=== PATIENT | female | born 1965 | race Caucasian/White ===

== ENCOUNTER → 2016-05-17 16:39 | Outpatient (CLI) | payer MEDICARE ==
[~2016-05-17 16:39] MED LIST: ADVAIR 250/501 DISK INH; BUTALB-APAP-CA1 EACH PO; LAMICTAL200 MG PO; OXYCODONE HCL5 MG PO; PROAIR HFA8.5 GM INH; PROZAC40 MG PO; WELLBUTRIN SR150 MG PO; XANAX1 MG PO
[2016-07-13 06:40] VITALS: BMI 65.5
== END | disposition home or self-care (01) ==
LOC: D.MAMMO 15:45
DX: Z12.31 Encounter for screening mammogram for malignant neoplasm of breast (principal)

== ENCOUNTER → 2016-05-26 09:07 | Outpatient (CLI) | payer MEDICARE ==
[2016-07-13 06:40] VITALS: BMI 65.5
== END | disposition home or self-care (01) ==
LOC: D.US 09:07
DX: R92.8 Other abnormal and inconclusive findings on diagnostic imaging of breast (principal)

== ENCOUNTER 2016-07-13 05:22 | Day surgery (SDC) | payer MEDICARE ==
[2016-07-12 14:01] LABS: HEMATOCRIT 41.7 % (36.0-48.0); HEMOGLOBIN 13.3 g/dL (12-16); MCH 28.1 pg (26.0-34.0); MCHC 31.9 g/dL (31.0-37.0); MCV 88.2 fL (80.0-100.0); MEAN PLATELET VOLUME 9.8 fL (7.4-10.4); RBC 4.73 10x6/uL (4.00-5.40); RDW 14.7 % (11.5-14.5); WBC 8.6 10x3/uL (4.8-10.8)
[~2016-07-13] VITALS: Ht 160 cm; Wt 167.4 kg
[~2016-07-13 05:22] MED LIST changes: -OXYCODONE HCL5 MG PO
[2016-07-13 06:40] VITALS: BP 149/90; Ht 160 cm; Wt 167.4 kg
--- NOTE | 2016-07-13 10:50 | NUR ---
BREAST TISSUE SPECIMEN SENT TO RADIOLOGY AT 1044 VIA SHAYNE JAIMES
--- NOTE | 2016-07-13 10:57 | NUR ---
MISTY IN MAMMOGRAPHY HAS RECEIVED THE SPECIMAN
[2016-07-13] MEDS ORDERED: OXYCODONE HCL5 MG PO (11:06)
--- NOTE | 2016-07-13 13:03 | NUR ---
IV DC WITH CATHER TIP INTACT
--- NOTE | 2016-07-13 19:02 | NUR ---
1340--PT'S RIDE ARRIVES, DISCHARGE INSTRUCTIONS GIVEN AND PT VERBALIZES UNDERSTANDING. PT OFF UNIT VIA ELMIRA. JOSEPHINE GORE
--- NOTE | 2016-07-14 09:11 | OP ---
PATIENT NAME: ADITYA HECTOR MEDICAL RECORD: [id number] :69 LOCATION:D.OPS ADMISSION DATE: SURGEON: PAT GALLEGO MD DATE OF OPERATION: 07/13/2016 SURGEON: Pat Gallego MD PREOPERATIVE DIAGNOSIS: Mammographic mass of the left breast. POSTOPERATIVE DIAGNOSIS: Mammographic mass of the left breast. PROCEDURES PERFORMED: Excisional biopsy of left breast mass with stereotactic needle localization. ANESTHESIA: General. COMPLICATIONS: None. SPECIMENS: Left breast mass, ____. ESTIMATED BLOOD LOSS: 20 cc. Case was clean. OPERATIVE COURSE: After consent was obtained, the patient was taken to the operating room and placed in supine position on the operating table. Next, general anesthesia was given via endotracheal intubation after a timeout was performed to confirm the correct patient and procedure. The left breast was prepped and draped in typical sterile fashion. A 30 cc of local anesthetic were injected into the left breast for local anesthetic. A small elliptical incision was made around the previously placed stereotactic guided needle. The left breast mass was carefully dissected using a combination of electrocautery and Metzenbaum dissection. A core section that was approximately 5 cm in depth, 3 cm in width and 2 cm in length was taken with the wire. Once the specimen was taken, it was sent on the mammographic plate to radiology where the needle and the lesion were again identified on post-biopsy imaging. The wound was copiously irrigated and suctioned. Careful attention was paid to hemostasis, which was obtained with a combination of electrocautery and 3-0 Vicryl suture. The lesion was closed in multiple layers. The deep layer was closed with 3-0 Vicryl sutures, superficial subcutaneous tissue was closed with 3-0 Vicryl sutures. Skin was closed with 4-0 Stratafix, Mastisol and Steri-Strips. At the end of the case, all needle and instrument counts were correct. No complications occurred. The patient was extubated and transferred to the PACU in stable condition. TRANSINT:[id number] Voice Confirmation ID: [id number] DOCUMENT ID: [id number] OPERATIVE REPORT [id number] ADITYA HECTOR PAT GALLEGO MD at 0911 CC: [id number] DICTATION DATE: 07/13/16 1112 RESOURCE TECHNICIAN: 07/13/16 1924 [facility] [place] 07/13/16 [facility] [address] [place] [address]
== END 2016-07-13 13:40 | disposition home or self-care (01) ==
LOC: D.OPS 05:22
PROVIDERS: Anesthesiology
DX: N60.32 Fibrosclerosis of left breast (principal)

== ENCOUNTER 2016-07-17 11:49 | Emergency (ER) | payer MEDICARE ==
[2016-07-13 06:40] VITALS: BMI 65.5
[~2016-07-17 11:49] MED LIST changes: +OXYCODONE HCL5 MG PO
== END 2016-07-17 14:10 | disposition home or self-care (01) ==
LOC: D.ER 11:49
DX: G89.18 Other acute postprocedural pain (principal); N64.4 Mastodynia; F17.200 Nicotine dependence, unspecified, uncomplicated

== ENCOUNTER 2016-10-16 17:11 | Emergency (ER) | payer MEDICARE ==
[2016-07-13 06:40] VITALS: BMI 65.5
[2016-10-16 18:30] LABS: BASOPHILS 0.3 % (0-2); EOSINOPHILS 3.9 % (0-7); HEMATOCRIT 39.3 % (36.0-48.0); HEMOGLOBIN 12.6 g/dL (12-16); IMMATURE GRANULOCYTES 0.3 % (0-5); LYMPHOCYTES 22.4 % (15-50); MCH 28.1 pg (26.0-34.0); MCHC 32.1 g/dL (31.0-37.0); MCV 87.7 fL (80.0-100.0); MONOCYTES 4.8 % (2-11); NEUTROPHILS 68.3 % (40-80); RBC 4.48 10x6/uL (4.00-5.40); RDW 14.9 % (11.5-14.5); WBC 10.2 10x3/uL (4.8-10.8)
[2016-10-16 18:45] LABS: PLATELET COUNT 262 10x3/uL (130-400)
[2016-10-16 18:48] LABS: ALBUMIN 3.2 g/dL (3.4-5.0); ALKALINE PHOSPHATASE 89 U/L (46-116); ALT (SGPT) 13 U/L (10-68); BILIRUBIN - TOTAL 0.35 mg/dL (0.2-1.3); CALC OSMOLALITY 277 mosm/kg (275-300); CALCIUM 8.8 mg/dL (8.5-10.1); CARBON DIOXIDE 29.6 mmol/L (21.0-32.0); CHLORIDE - SERUM 103 mmol/L (98-107); CREATININE - SERUM 0.8 mg/dL (0.6-1.3); GLUCOSE 107 mg/dL (74-106); POTASSIUM - SERUM 3.9 mmol/L (3.5-5.1); PROTEIN - SERUM 7.5 g/dL (6.4-8.2); SODIUM 141 mmol/L (136-145); UREA NITROGEN 5 mg/dL (7-18); eGFR NON AFRICAN AMERICAN 81 mL/min (90-120)
[2016-10-16 18:54] LABS: PRO BNP 19 pg/mL (0-125)
[2016-10-16 19:19] LABS: APPEARANCE HAZY (CLEAR); BILIRUBIN NEGATIVE (NEGATIVE); COLOR YELLOW (YELLOW); GLUCOSE NEGATIVE (NEGATIVE); KETONE NEGATIVE (NEGATIVE); LEUKOCYTE ESTERASE NEGATIVE (NEGATIVE); NITRITE NEGATIVE (NEGATIVE); PROTEIN NEGATIVE (NEGATIVE); UROBILINOGEN NORMAL (NORMAL)
== END 2016-10-16 20:23 | disposition home or self-care (01) ==
LOC: D.ER 17:11
PROVIDERS: Physician Assistant Medical
DX: J44.1 Chronic obstructive pulmonary disease with (acute) exacerbation (principal); J06.9 Acute upper respiratory infection, unspecified; J01.90 Acute sinusitis, unspecified; F17.200 Nicotine dependence, unspecified, uncomplicated

== ENCOUNTER → 2016-10-17 13:17 | Outpatient (CLI) | payer MEDICARE ==
[2016-07-13 06:40] VITALS: BMI 65.5
== END | disposition home or self-care (01) ==
LOC: D.RT 13:17
DX: J45.909 Unspecified asthma, uncomplicated (principal)

== ENCOUNTER → 2016-10-21 07:56 | Outpatient (CLI) | payer MEDICARE ==
[2016-07-13 06:40] VITALS: BMI 65.5
== END | disposition home or self-care (01) ==
LOC: D.RAD 07:56
DX: E66.01 Morbid (severe) obesity due to excess calories (principal)

== ENCOUNTER 2016-11-02 07:55 | Day surgery (SDC) | payer MEDICARE ==
[~2016-11-02] VITALS: Ht 160 cm; Wt 157.7 kg
[2016-11-02] MEDS ORDERED: SINGULAIR10 MG PO (08:46)
[2016-11-02 08:47] VITALS: BP 163/93; Ht 160 cm; Wt 157.7 kg
[2016-11-02 09:02] LABS: BASOPHILS 0.2 % (0-2); EOSINOPHILS 4.1 % (0-7); HEMATOCRIT 40.6 % (36.0-48.0); HEMOGLOBIN 12.8 g/dL (12-16); IMMATURE GRANULOCYTES 0.5 % (0-5); LYMPHOCYTES 26.4 % (15-50); MCHC 31.5 g/dL (31.0-37.0); MCV 88.8 fL (80.0-100.0); MEAN PLATELET VOLUME 10.6 fL (7.4-10.4); MONOCYTES 5.2 % (2-11); NEUTROPHILS 63.6 % (40-80); PLATELET COUNT 297 10x3/uL (130-400); RBC 4.57 10x6/uL (4.00-5.40); RDW 15.3 % (11.5-14.5); WBC 8.1 10x3/uL (4.8-10.8)
[2016-11-02 09:19] LABS: CALC OSMOLALITY 280 mosm/kg (275-300); CALCIUM 8.2 mg/dL (8.5-10.1); CHLORIDE - SERUM 104 mmol/L (98-107); CREATININE - SERUM 0.8 mg/dL (0.6-1.3); GLUCOSE 136 mg/dL (74-106); POTASSIUM - SERUM 3.9 mmol/L (3.5-5.1); SODIUM 141 mmol/L (136-145); UREA NITROGEN 7 mg/dL (7-18); eGFR NON AFRICAN AMERICAN 81 mL/min (90-120)
[2016-11-02 09:29] LABS: CARBON DIOXIDE 27.3 mmol/L (21.0-32.0)
--- NOTE | 2016-11-02 11:37 | NUR ---
1125 DISCHARGE INSTRUCTIONS GIVEN. ESCORTED OUT BY VOLUNTEER.
== END 2016-11-02 11:25 | disposition home or self-care (01) ==
LOC: D.OPS 07:55
PROVIDERS: Anesthesiology
DX: E66.2 Morbid (severe) obesity with alveolar hypoventilation (principal); Z68.44 Body mass index [BMI] 60.0-69.9, adult; G47.33 Obstructive sleep apnea (adult) (pediatric); K20.9 Esophagitis, unspecified; K29.50 Unspecified chronic gastritis without bleeding; K44.9 Diaphragmatic hernia without obstruction or gangrene; Z01.812 Encounter for preprocedural laboratory examination

== ENCOUNTER → 2016-12-06 10:38 | Outpatient (CLI) | payer SELFPAY ==
[~2016-12-06] VITALS: Ht 160 cm; Wt 160.1 kg
[~2016-12-06 10:38] MED LIST changes: +SINGULAIR10 MG PO
[2016-12-06 13:34] VITALS: Ht 160 cm; Wt 160.1 kg
== END | disposition home or self-care (01) ==
LOC: D.FANS 10:30
DX: Z01.818 Encounter for other preprocedural examination (principal)

== ENCOUNTER → 2017-01-20 12:04 | Outpatient (CLI) | payer MEDICARE ==
[2016-12-06 13:34] VITALS: BMI 62.5
[~2017-01-20 12:04] MED LIST changes: +LEVAQUIN750 MG PO
== END | disposition home or self-care (01) ==
LOC: D.RAD 10:00
DX: J45.909 Unspecified asthma, uncomplicated (principal)

== ENCOUNTER → 2017-03-15 15:40 | Outpatient (CLI) | payer MEDICARE ==
[2016-12-06 13:34] VITALS: BMI 62.5
== END | disposition home or self-care (01) ==
LOC: D.LABREF 15:40
DX: J11.1 Influenza due to unidentified influenza virus with other respiratory manifestations (principal)

== ENCOUNTER → 2017-04-19 08:19 | Outpatient (CLI) | payer MEDICARE ==
[2016-12-06 13:34] VITALS: BMI 62.5
[2017-04-19 09:35] LABS: BASOPHILS 0.2 % (0-2); EOSINOPHILS 2.1 % (0-7); HEMATOCRIT 40.3 % (36.0-48.0); IMMATURE GRANULOCYTES 0.3 % (0-5); MCH 29.1 pg (26.0-34.0); MCHC 32.3 g/dL (31.0-37.0); MCV 90.4 fL (80.0-100.0); MEAN PLATELET VOLUME 10.2 fL (7.4-10.4); MONOCYTES 5.4 % (2-11); PLATELET COUNT 252 10x3/uL (130-400); RBC 4.46 10x6/uL (4.00-5.40); RDW 15.2 % (11.5-14.5); WBC 9.2 10x3/uL (4.8-10.8)
== END | disposition home or self-care (01) ==
LOC: D.ECHO 08:19
PROVIDERS: Internal Medicine Pulmonary Disease
DX: J45.909 Unspecified asthma, uncomplicated (principal)

== ENCOUNTER 2017-04-23 12:33 | Inpatient (IN) | payer MEDICARE ==
[~2017-04-23] VITALS: Ht 160 cm; Wt 155.9 kg
--- NOTE | ~2017-04-23 | HP ---
PATIENT: ADITYA NGUYENTH MEDICAL RECORD: [id number] ACCOUNT: [id number] LOCATION:D. D2134 : 69 ADMISSION DATE: 04/23/17 HISTORY AND PHYSICAL EXAMINATION HISTORY OF PRESENT ILLNESS: A 51-year-old female presented to the Emergency Room with progressive shortness of breath over the past 2 days. PAST MEDICAL HISTORY: Significant for COPD; anxiety disorder; bilateral knee replacement; sleep apnea, is on CPAP at home; recurrent pneumonia. CURRENT MEDICATIONS: Listed as lisinopril, Lamictal, bupropion, Prozac, Singulair, Xanax, Duracet, Advair, Flonase, ProAir, DuoNebs. Her circulation clerk is Dr. Daly. She reports fever the past 2 days with her progressive shortness of breath. No relief with updraft treatments at home. REVIEW OF SYSTEMS: GENERAL: No reported change in weight or appetite. HEENT: No cephalgia, visual changes, tinnitus, epistaxis or dysphagia. CARDIOVASCULAR: Denies chest pain, denies palpitations. Had a recent echocardiogram that was normal with ejection fraction of 55%. This was done within the last 2 weeks. PULMONARY: Denies hemoptysis, denies night sweats. History of COPD, obstructive sleep apnea, acute exacerbation with her shortness of breath and cough. GASTROINTESTINAL: Denies hematemesis, hematochezia or melena. GENITOURINARY: Denies dysuria. MUSCULOSKELETAL: No acute changes. ENDOCRINE: Denies polyuria, polydipsia, or polyphagia. PHYSICAL EXAMINATION: VITAL SIGNS: Temperature 97.2, blood pressures 155/55, heart rate 64, respirations 20, O2 sats 94% with supplemental oxygen, morbidly obese. HEENT: Normocephalic, atraumatic. Eyes; pupils are equally round and reactive to light and accommodation. Extraocular muscles intact. Conjunctivae not injected. Ears; canals patent. TMs are intact. Nose; nares patent without drainage. Throat; no erythema, no exudates. NECK: Supple. No lymphadenopathy. HEART: Regular rate and rhythm. No S3, S4, no rub. LUNGS: Very poor air movement, scattered rhonchi. ABDOMEN: Soft, nontender. Bowel sounds in all 4 quadrants. EXTREMITIES: Present times 4, no edema. NEUROLOGIC: Intact. SKIN: Warm and dry. No rash. LABORATORY DATA: ABG showed a pH of 7.423, pCO2 39, pO2 74, FiO2 28. CBC; white count 9.2, hemoglobin 13.3, hematocrit 40.5, platelets 243. BUN 8, creatinine 0.7, glucose 134, calcium 9.0. AST 14, ALT 16, alkaline phosphatase 77. Troponin is less than 0.017. ProBNP 17, normal. Chest x-ray, possible early pneumonia. ASSESSMENT AND PLAN: HISTORY AND PHYSICAL [id number] ADITYA NGUYEN 1. Exacerbation of chronic obstructive pulmonary disease, obstructive sleep apnea. Pulmonology consulted and will be on BiPAP tonight. 2. Anxiety. Resume Xanax. 3. Morbid obesity. Risk factors for thromboembolic event. We will check a D-dimer, if elevated we will obtain CTA chest. Empiric antibiotics. Blood cultures pending. TRANSINT:[id number] Voice Confirmation ID: [id number] DOCUMENT ID: [id number] KENNEY PATEL DO at 0823 CC: [id number] DICTATION DATE: 04/23/171940 CHANGE ADVISOR: 04/24/[address] [facility] [address] [place] [address]
--- NOTE | ~2017-04-23 | EC ---
PATIENT:ADITYA NGUYENTH DATE OF SERVICE: 04/23/17 SEX: F MEDICAL RECORD: [id number] DATE OF : 69 LOCATION:D.M2 D.213 AGE OF PATIENT: 51 ADMISSION DATE: 04/23/17 REFERRING PHYSICIAN: INTERPRETING PHYSICIAN: CHANDA ODOM MD ECHOCARDIOGRAM REPORT ECHO CHARGES 5 ECHO LIMITED CLINICAL DIAGNOSIS: CHF/EDEMA ECHOCARDIOGRAPHIC MEASUREMENTS (adult normal given) AC root (d.<3.7cm) 0 cm LV Septum d (<1.2 cm> 0 cm Valve Excursion 0 cm LV Septum (systole) 0 cm Left Atria (s.<4.0cm> 0 cm LVPW d(<1.2cm) 0 cm RV (d.<2.3cm) 0 cm LVPW (sytole) 0 cm LV diastole(<5.6CM) 0 cm MV E-F(>70mm/sec) 0 cm LV systole 0 cm LVOT Diameter 0 cm MV exc.(>10mm) 0 cm Est.ejection fraction (50-75%) % Pericardial Effusion N DOPPLER: LVIT 0 cm/sec A 0 cm/sec E 0 cm/sec LA 0 cm/sec RVSP 0 mmHg LVOT 0 cm/sec AOP1/2T 0 m/s Asc. Ao 0 cm/sec RVOT 0 cm/sec RA 0 cm/sec PA 0 cm/sec AV Gradient Peak 0 mmHg AV Mean 0 mmHg AV Area 0 cm MV Gradient Peak 0 mmHg MV Mean 0 mmHg MV Area 0 cm COMMENTS: LIMITED STUDY (2-D ONLY) COMPLETE ECHO DONE ON 04/19/17 Provider Education Specialist: Taya PRESLEY Technical Services Representative: 3 Dr. Oliveira TAPE# PACS DATE OF SERVICE: 04/24/2017 PROCEDURE: Limited echo for ejection fraction. FINDINGS: Left ventricular chamber size is within normal limits. Left ventricular systolic function is normal at 60%. TRANSINT:[id number] Voice Confirmation ID: [id number] DOCUMENT ID: [id number] ECHOCARDIOGRAM REPORT [id number] NGUYEN,TOSCHANDA SILVA MD at 1323 CC: [id number] DICTATION DATE: 04/26/17 1018 DRILL PRESS SET UP OPERATOR: 04/26/17 1153 DIS IN 04/27/17 [facility] [address] [place] [address]
[~2017-04-23 12:33] MED LIST changes: -LEVAQUIN750 MG PO
[2017-04-23 13:04] LABS: BASOPHILS 0.2 % (0-2); HEMATOCRIT 40.5 % (36.0-48.0); HEMOGLOBIN 13.3 g/dL (12-16); IMMATURE GRANULOCYTES 0.2 % (0-5); LYMPHOCYTES 13.3 % (15-50); MCHC 32.8 g/dL (31.0-37.0); MCV 88.4 fL (80.0-100.0); MONOCYTES 6.3 % (2-11); PLATELET COUNT 243 10x3/uL (130-400); RBC 4.58 10x6/uL (4.00-5.40); WBC 9.2 10x3/uL (4.8-10.8)
[2017-04-23 13:19] LABS: ALBUMIN 3.6 g/dL (3.4-5.0); ALKALINE PHOSPHATASE 77 U/L (46-116); ALT (SGPT) 16 U/L (10-68); BILIRUBIN - TOTAL 0.53 mg/dL (0.2-1.3); CALC OSMOLALITY 271 mosm/kg (275-300); CARBON DIOXIDE 28.9 mmol/L (21.0-32.0); CHLORIDE - SERUM 98 mmol/L (98-107); CREATININE - SERUM 0.7 mg/dL (0.6-1.3); GLUCOSE 134 mg/dL (74-106); POTASSIUM - SERUM 4.2 mmol/L (3.5-5.1); PROTEIN - SERUM 7.6 g/dL (6.4-8.2); SODIUM 136 mmol/L (136-145); UREA NITROGEN 8 mg/dL (7-18); eGFR NON AFRICAN AMERICAN > 90 mL/min (90-120)
[2017-04-23 13:27] LABS: PRO BNP 17 pg/mL (0-125); TROPONIN-I < 0.017 ng/mL (0.000-0.060)
[2017-04-23 16:35] VITALS: BP 138/85
[2017-04-23 19:18] VITALS: BP 155/55; BMI 63.9
[2017-04-23 20:00] VITALS: BP 140/81
[2017-04-24] VITALS: BP 144/81
[2017-04-24 04:00] VITALS: BP 120/60
[2017-04-24 05:08] LABS: BASOPHILS 0.2 % (0-2); EOSINOPHILS 0 % (0-7); HEMATOCRIT 41.2 % (36.0-48.0); HEMOGLOBIN 13.5 g/dL (12-16); IMMATURE GRANULOCYTES 0.4 % (0-5); LYMPHOCYTES 11.9 % (15-50); MCHC 32.8 g/dL (31.0-37.0); MCV 88.4 fL (80.0-100.0); MEAN PLATELET VOLUME 10.1 fL (7.4-10.4); NEUTROPHILS 81.5 % (40-80); PLATELET COUNT 276 10x3/uL (130-400); RBC 4.66 10x6/uL (4.00-5.40)
[2017-04-24 05:15] LABS: WBC 12.6 10x3/uL (4.8-10.8)
[2017-04-24 05:38] LABS: ANION GAP 13.1 mmol/L (8-16); CALCIUM 8.9 mg/dL (8.5-10.1); CARBON DIOXIDE 30.7 mmol/L (21.0-32.0); PHOSPHOROUS 4.4 mg/dL (2.5-4.9); POTASSIUM - SERUM 3.8 mmol/L (3.5-5.1)
[2017-04-24 05:40] LABS: CREATININE - SERUM 0.9 mg/dL (0.6-1.3)
[2017-04-24 08:04] VITALS: BP 142/76
[2017-04-24 12:09] VITALS: BP 162/86
[2017-04-24 12:46] VITALS: Ht 160 cm; Wt 155.9 kg
[2017-04-24 16:28] VITALS: BP 157/80
[2017-04-24 20:00] VITALS: BP 151/83
[2017-04-25 04:00] VITALS: BP 142/88
[2017-04-25 04:48] LABS: BASOPHILS 0.1 % (0-2); EOSINOPHILS 0 % (0-7); HEMATOCRIT 39.8 % (36.0-48.0); HEMOGLOBIN 12.7 g/dL (12-16); IMMATURE GRANULOCYTES 0.6 % (0-5); LYMPHOCYTES 11.2 % (15-50); MCH 28.4 pg (26.0-34.0); MCHC 31.9 g/dL (31.0-37.0); MEAN PLATELET VOLUME 10.5 fL (7.4-10.4); MONOCYTES 3.8 % (2-11); NEUTROPHILS 84.3 % (40-80); PLATELET COUNT 292 10x3/uL (130-400); RBC 4.47 10x6/uL (4.00-5.40); RDW 14.8 % (11.5-14.5)
[2017-04-25 04:50] LABS: WBC 17.6 10x3/uL (4.8-10.8)
[2017-04-25 05:51] LABS: ANION GAP 14.7 mmol/L (8-16); CALCIUM 8.9 mg/dL (8.5-10.1); CARBON DIOXIDE 30.3 mmol/L (21.0-32.0); CREATININE - SERUM 0.9 mg/dL (0.6-1.3)
[2017-04-25 08:14] VITALS: BP 136/79
[2017-04-25 12:42] VITALS: BP 178/87
[2017-04-25 16:37] VITALS: BP 147/70
[2017-04-25 20:00] VITALS: BP 136/77
[2017-04-26] VITALS: BP 141/79
[2017-04-26 04:00] VITALS: BP 136/73
[2017-04-26 04:18] LABS: HEMATOCRIT 40.9 % (36.0-48.0); MCH 28.6 pg (26.0-34.0); MCHC 31.8 g/dL (31.0-37.0); MCV 90.1 fL (80.0-100.0); MEAN PLATELET VOLUME 10.4 fL (7.4-10.4); PLATELET COUNT 323 10x3/uL (130-400); RBC 4.54 10x6/uL (4.00-5.40); RDW 14.6 % (11.5-14.5); WBC 21.2 10x3/uL (4.8-10.8)
[2017-04-26 04:26] LABS: CALC OSMOLALITY 285 mosm/kg (275-300); CALCIUM 8.9 mg/dL (8.5-10.1); CARBON DIOXIDE 31.8 mmol/L (21.0-32.0); CHLORIDE - SERUM 99 mmol/L (98-107); CREATININE - SERUM 0.8 mg/dL (0.6-1.3); GLUCOSE 168 mg/dL (74-106); POTASSIUM - SERUM 3.5 mmol/L (3.5-5.1); SODIUM 140 mmol/L (136-145); UREA NITROGEN 22 mg/dL (7-18); eGFR NON AFRICAN AMERICAN 81 mL/min (90-120)
[2017-04-26 04:56] LABS: EOSINOPHILS 1 % (0-7); LYMPHOCYTES 22 % (15-50); MONOCYTES 4 % (2-11); NEUTROPHILS 71 % (40-80); PLATELET ESTIMATE NORMAL
[2017-04-26 08:54] VITALS: BP 104/58
[2017-04-26 12:28] VITALS: BP 130/77
[2017-04-26 16:31] VITALS: BP 142/69
[2017-04-26 21:00] VITALS: BP 145/87
[2017-04-27 06:04] VITALS: BP 144/60
[2017-04-27 06:23] LABS: HEMATOCRIT 37.9 % (36.0-48.0); HEMOGLOBIN 12.4 g/dL (12-16); LYMPHOCYTES 21.3 % (15-50); MCH 28.4 pg (26.0-34.0); MCHC 32.7 g/dL (31.0-37.0); MEAN PLATELET VOLUME 10.1 fL (7.4-10.4); PLATELET COUNT 298 10x3/uL (130-400); RBC 4.37 10x6/uL (4.00-5.40); RDW 14.2 % (11.5-14.5); WBC 18.4 10x3/uL (4.8-10.8)
[2017-04-27 06:42] LABS: MCV 86.7 fL (80.0-100.0)
[2017-04-27 06:43] LABS: ALBUMIN 3.2 g/dL (3.4-5.0); ALKALINE PHOSPHATASE 74 U/L (46-116); ALT (SGPT) 17 U/L (10-68); CALC OSMOLALITY 293 mosm/kg (275-300); CALCIUM 8.9 mg/dL (8.5-10.1); CARBON DIOXIDE 31.1 mmol/L (21.0-32.0); CHLORIDE - SERUM 102 mmol/L (98-107); CREATININE - SERUM 0.6 mg/dL (0.6-1.3); PROTEIN - SERUM 6.9 g/dL (6.4-8.2); SODIUM 142 mmol/L (136-145); UREA NITROGEN 20 mg/dL (7-18); eGFR NON AFRICAN AMERICAN > 90 mL/min (90-120)
[2017-04-27 06:44] LABS: GLUCOSE 235 mg/dL (74-106)
[2017-04-27 08:37] VITALS: BP 155/75
[2017-04-27] MEDS ORDERED: LEVAQUIN750 MG PO (10:06)
[2017-04-27 12:43] VITALS: BP 146/88
== END 2017-04-27 13:25 | disposition home or self-care (01) | DRG 177 ==
LOC: D.ER 12:33 → D.M2 14:23
PROVIDERS: Emergency Medicine; Family Medicine
PROC: 5A09457 Assistance with Respiratory Ventilation, 24-96 Consecutive Hours, Continuous Positive Airway Pressure (ICD-10-PCS; principal; 2017-04-24)
DX: J15.6 Pneumonia due to other Gram-negative bacteria (principal); I50.33 Acute on chronic diastolic (congestive) heart failure; J96.21 Acute and chronic respiratory failure with hypoxia; J44.0 Chronic obstructive pulmonary disease with (acute) lower respiratory infection; J44.1 Chronic obstructive pulmonary disease with (acute) exacerbation; Z68.44 Body mass index [BMI] 60.0-69.9, adult; M35.1 Other overlap syndromes; J13 Pneumonia due to Streptococcus pneumoniae; G47.33 Obstructive sleep apnea (adult) (pediatric); E66.01 Morbid (severe) obesity due to excess calories; J01.90 Acute sinusitis, unspecified; J30.9 Allergic rhinitis, unspecified; K44.9 Diaphragmatic hernia without obstruction or gangrene; Z72.0 Tobacco use; K08.89 Other specified disorders of teeth and supporting structures

== ENCOUNTER → 2017-11-24 13:47 | Outpatient (CLI) | payer MEDICARE ==
[2017-04-24 12:46] VITALS: BMI 58.9
[~2017-11-24 13:47] MED LIST changes: +LEVAQUIN750 MG PO
== END | disposition home or self-care (01) ==
LOC: D.CT 11-22 11:30
DX: R91.1 Solitary pulmonary nodule (principal)

== ENCOUNTER 2018-02-04 12:58 | Emergency (ER) | payer MEDICARE ==
[~2018-02-04] VITALS: Ht 160 cm; Wt 153.2 kg
[2018-02-04 13:08] VITALS: Ht 160 cm; Wt 153.2 kg
[2018-02-04] MEDS ORDERED: K-TAB10 MEQ PO (13:12)
[2018-02-04] MEDS ORDERED: FUROSEMIDE20 MG PO (13:12)
[2018-02-04] MEDS ORDERED: PRINIVIL20 MG PO (13:12)
[2018-02-04] MEDS ORDERED: TYLENOL W/CODEI1 TAB PO (14:56)
[2018-02-04] MEDS ORDERED: CYCLOBENZAPRINE10 MG PO (14:56)
[2018-02-04 15:53] VITALS: BP 128/74
== END 2018-02-04 15:55 | disposition home or self-care (01) ==
LOC: D.ER 12:58
DX: R07.81 Pleurodynia (principal); R09.1 Pleurisy; I10 Essential (primary) hypertension; J44.9 Chronic obstructive pulmonary disease, unspecified; J45.909 Unspecified asthma, uncomplicated; F17.200 Nicotine dependence, unspecified, uncomplicated

== ENCOUNTER 2018-02-14 17:59 | Emergency (ER) | payer MEDICARE ==
[~2018-02-14] VITALS: Ht 160 cm; Wt 148.6 kg
[~2018-02-14 17:59] MED LIST changes: +CYCLOBENZAPRINE10 MG PO; +FUROSEMIDE20 MG PO; +K-TAB10 MEQ PO; +PRINIVIL20 MG PO; +TYLENOL W/CODEI1 TAB PO
[2018-02-14 18:08] VITALS: Ht 160 cm; Wt 148.6 kg
[2018-02-14 19:46] VITALS: BP 140/71
== END 2018-02-14 19:48 | disposition home or self-care (01) ==
LOC: D.ER 17:59
DX: S93.402A Sprain of unspecified ligament of left ankle, initial encounter (principal); W18.30XA Fall on same level, unspecified, initial encounter; Y93.89 Activity, other specified; Y92.019 Unspecified place in single-family (private) house as the place of occurrence of the external cause; S63.501A Unspecified sprain of right wrist, initial encounter; I10 Essential (primary) hypertension; J44.9 Chronic obstructive pulmonary disease, unspecified; F17.200 Nicotine dependence, unspecified, uncomplicated

== ENCOUNTER 2018-03-12 10:52 | Emergency (ER) | payer MEDICARE ==
[~2018-03-12] VITALS: Ht 160 cm; Wt 156.4 kg
[2018-03-12 11:06] VITALS: BP 173/104; Ht 160 cm; Wt 156.4 kg
== END 2018-03-12 14:33 | disposition left against medical advice (07) ==
LOC: D.ER 10:52
DX: K08.89 Other specified disorders of teeth and supporting structures (principal); I10 Essential (primary) hypertension; J44.9 Chronic obstructive pulmonary disease, unspecified

== ENCOUNTER → 2018-04-25 16:58 | Outpatient (CLI) | payer MEDICARE ==
[2018-03-12 11:06] VITALS: BMI 61.0
== END | disposition home or self-care (01) ==
LOC: D.CT 16:58
DX: R91.1 Solitary pulmonary nodule (principal)

== ENCOUNTER → 2018-09-03 10:41 | Outpatient (CLI) | payer MEDICARE ==
[2018-03-12 11:06] VITALS: BMI 61.0
== END | disposition home or self-care (01) ==
LOC: D.RT 10:41
PROVIDERS: ATTEND Nurse Practitioner Acute Care
DX: J45.909 Unspecified asthma, uncomplicated (principal)

== ENCOUNTER 2018-10-10 17:26 | Emergency (ER) | payer MEDICARE ==
[~2018-10-10] VITALS: Ht 160 cm; Wt 145.5 kg
[2018-10-10 17:30] VITALS: Ht 160 cm; Wt 145.5 kg
[2018-10-10 20:30] VITALS: BP 149/81
[2018-10-11] MEDS ORDERED: COZAAR100 MG PO (10:37)
[2018-10-11] MEDS ORDERED: HYDROCODON-ACE1 EAC2 PO (11:29)
== END 2018-10-10 20:30 | disposition home or self-care (01) ==
LOC: D.ER 17:26
DX: S39.82XA Other specified injuries of lower back, initial encounter (principal); W19.XXXA Unspecified fall, initial encounter; I10 Essential (primary) hypertension; J44.9 Chronic obstructive pulmonary disease, unspecified

== ENCOUNTER 2018-10-11 10:31 | Emergency (ER) | payer MEDICARE ==
[~2018-10-11] VITALS: Ht 160 cm; Wt 145.5 kg
[2018-10-11 10:36] VITALS: Ht 160 cm; Wt 145.5 kg
[2018-10-11] MEDS ORDERED: COZAAR100 MG PO (10:37)
[2018-10-11] MEDS ORDERED: HYDROCODON-ACE1 EAC2 PO (11:29)
[2018-10-11 11:41] VITALS: BP 132/76
== END 2018-10-11 11:42 | disposition home or self-care (01) ==
LOC: D.ER 10:31
DX: M54.5 Low back pain (principal); Z91.81 History of falling

== ENCOUNTER 2019-11-11 14:37 | Inpatient (IN) | payer MEDICARE ==
[~2019-11-11] VITALS: Ht 160 cm; Wt 157.3 kg
[~2019-11-11 14:37] MED LIST changes: +COZAAR100 MG PO; -FUROSEMIDE20 MG PO; +FUROSEMIDE40 MG PO; +HYDROCODON-ACE1 EAC2 PO
[2019-11-11 15:22] LABS: BASOPHILS 0.2 % (0-2); EOSINOPHILS 0.1 % (0-7); HEMATOCRIT 45.2 % (36.0-48.0); IMMATURE GRANULOCYTES 0.4 % (0-5); LYMPHOCYTES 6.4 % (15-50); MCH 27.9 pg (26.0-34.0); MCHC 33.2 g/dL (31.0-37.0); MEAN PLATELET VOLUME 10.3 fL (7.4-10.4); MONOCYTES 3.1 % (2-11); NEUTROPHILS 89.8 % (40-80); RBC 5.38 10x6/uL (4.00-5.40); RDW 14.2 % (11.5-14.5); WBC 19.9 10x3/uL (4.8-10.8)
[2019-11-11 15:28] LABS: CALC OSMOLALITY 283 mosm/kg (275-300); CALCIUM 9.5 mg/dL (8.5-10.1); CARBON DIOXIDE 28.5 mmol/L (21.0-32.0); CHLORIDE - SERUM 100 mmol/L (98-107); CREATININE - SERUM 0.8 mg/dL (0.6-1.3); POTASSIUM - SERUM 3.4 mmol/L (3.5-5.1); SODIUM 139 mmol/L (136-145); UREA NITROGEN 15 mg/dL (7-18); eGFR NON AFRICAN AMERICAN 80 mL/min (90-120)
[2019-11-11 15:30] VITALS: BP 172/92
[2019-11-11 15:35] LABS: GLUCOSE 185 mg/dL (74-106); PLATELET COUNT 367 10x3/uL (130-400)
--- NOTE | 2019-11-11 15:39 | NUR ---
DIGITAL ART DIRECTOR CALLED FOR PSYCH EVAL
[2019-11-11 15:52] LABS: ALBUMIN 3.7 g/dL (3.4-5.0); ALKALINE PHOSPHATASE 84 U/L (30-120); ALT (SGPT) 20 U/L (10-68); AMYLASE - SERUM 30 U/L (25-115); LIPASE 60 U/L (73-393); PROTEIN - SERUM 7.5 g/dL (6.4-8.2)
[2019-11-11 15:54] LABS: TROPONIN-I 0.291 ng/mL (0.000-0.060)
--- NOTE | 2019-11-11 16:32 | NUR ---
PT GONE TO CTG
[2019-11-11 18:07] VITALS: BP 174/111
--- NOTE | 2019-11-11 18:14 | NUR ---
URINE TO LAB
[2019-11-11 18:20] VITALS: BP 182/118
--- NOTE | 2019-11-11 18:21 | NUR ---
PT TAKES HOME OXYGEN 2 L DURING DAY AND 4 L NIGHT TIME.
[2019-11-11 18:22] LABS: BILIRUBIN NEGATIVE (NEGATIVE); GLUCOSE NEGATIVE (NEGATIVE); KETONE MODERATE mg/dL (NEGATIVE); NITRITE NEGATIVE (NEGATIVE); UROBILINOGEN NORMAL (NORMAL)
--- NOTE | 2019-11-11 18:28 | NUR ---
16FR N/G TUBE PLACED LEFT NARE, VERIFIED WITH 20CC AIRBOLAS. TUBE TO LIWS PER DR. JONES
[2019-11-11 18:55] VITALS: BP 170/114
--- NOTE | 2019-11-11 19:30 | NUR ---
RECIEVED TO ROOM ALERT AND ORIENTIATED , NG TUBE TO L NARE CONNECTED TO LOW INTERMITENT SUCTION, C/O ABD PAIN AND TENDERNESS, MORPHINE ACTIVITIES SPECIALIST STARTED ORDERED, REMINED TO BE NPO, SEE ASSESSMENT, BP ELEVATED WILL RECHECK
[2019-11-11 20:00] VITALS: BP 180/120
--- NOTE | 2019-11-11 21:15 | NUR ---
BP RECHECKED REMAINS ELEVATED AT 168/104, APRESSOLINE 10MG IV GIVEN ORDERED, REPORTS PAIN RELIEVED WITH LIBRARY CIRCULATION TECHNICIAN,
[2019-11-11 21:45] LABS: CKMB 8.1 U/L (0.0-3.6); CREATINE KINASE 98 UL (21-215)
[2019-11-11 21:52] LABS: TROPONIN-I 0.734 ng/mL (0.000-0.060)
[2019-11-12] VITALS (35 sets, daily range): BP systolic 86–177; BP diastolic 55–104; Ht 160 cm; Wt 157.3 kg
[2019-11-12 03:13] LABS: BASOPHILS 0 % (0-2); EOSINOPHILS 0 % (0-7); HEMATOCRIT 52.1 % (36.0-48.0); HEMOGLOBIN 17.1 g/dL (12-16); IMMATURE GRANULOCYTES 0.5 % (0-5); LYMPHOCYTES 4.3 % (15-50); MCHC 32.8 g/dL (31.0-37.0); MCV 85.4 fL (80.0-100.0); MEAN PLATELET VOLUME 10.2 fL (7.4-10.4); MONOCYTES 3.5 % (2-11); NEUTROPHILS 91.7 % (40-80); PLATELET COUNT 447 10x3/uL (130-400); RDW 14.5 % (11.5-14.5); WBC 28.1 10x3/uL (4.8-10.8)
[2019-11-12 03:18] LABS: APTT 27.9 SECONDS (22.8-39.4); PROTIME 13.1 SECONDS (11.6-15.0)
[2019-11-12 03:37] LABS: CKMB 10.3 U/L (0.0-3.6); CREATINE KINASE 102 UL (21-215)
[2019-11-12 03:38] LABS: TROPONIN-I 0.922 ng/mL (0.000-0.060)
[2019-11-12 04:12] LABS: ALBUMIN 3.4 g/dL (3.4-5.0); ANION GAP 17.9 mmol/L (8-16); BILIRUBIN - TOTAL 0.79 mg/dL (0.2-1.3); CALCIUM 8.8 mg/dL (8.5-10.1); CARBON DIOXIDE 27.3 mmol/L (21.0-32.0); CHOL - HDL RATIO 5.1 ratio (2.3-4.1); LDL-HDL RATIO 3.6 ratio (1.5-3.5); MAGNESIUM - SERUM 1.8 mg/dL (1.8-2.4); PHOSPHOROUS 5.2 mg/dL (2.5-4.9); POTASSIUM - SERUM 3.2 mmol/L (3.5-5.1); PROTEIN - SERUM 7.4 g/dL (6.4-8.2); THYROID STIMULATING HORMONE 0.83 uIU/mL (0.36-3.74)
[2019-11-12 04:18] LABS: CREATININE - SERUM 1.1 mg/dL (0.6-1.3)
--- NOTE | 2019-11-12 07:54 | NUR ---
ALERT AND ORIENTED. LUNGS CLEAR BILATERALLY. HEART SOUNDS S1 AND S2 HEARD IN ALL SANCHEZ. NG TUBE TO RIGHT NARE PATENT. IV TO RIGHT AC PATENT WITHOUT REDNESS. O2 IN PLACE AT 4L NC. DENIES NEEDS. BED LOW. CALL RAM AND PERSONAL ITEMS IN REACH. WILL CONTINUE TO MONITOR.
--- NOTE | 2019-11-12 10:09 | NUR ---
PATIENT STATES IS NOT DIABETIC AND DOES NOT WANT BLOOD SUGAR CHECKS.
[2019-11-12 10:24] LABS: CKMB 7.1 U/L (0.0-3.6); CREATINE KINASE 94 UL (21-215)
[2019-11-12 10:27] LABS: TROPONIN-I 1.286 ng/mL (0.000-0.060)
--- NOTE | 2019-11-12 14:31 | NUR ---
PATIENT BELONGINGS BAGGED TO GO TO ICU. INCLUDED IN BELONGINGS IS CELL PHONE, NINE SILVER COLORED RINGS, ONE GOLD COLORED RING, ONE HOOP EARRING, THREE BAR EARRINGS, ONE PAIR FLIP FLOPS, ONE MAST PAIR SWEAT PANTS, ONE PINK COTTON PAULINA, ONE PERSONAL BAG. ALL JEWELRY PLACED IN DENTURE CUP AND PLACED IN PATIENT PERSONAL BAG. ALL BELONGINGS PLACED IN PLASTIC BAG FOR TRANSFER TO ICU.
--- NOTE | 2019-11-12 15:06 | NUR ---
REPORT GIVEN TO KEVON IN ICU. BELONGINGS SENT TO ICU WITH MONIQUE GORE.
--- NOTE | 2019-11-12 16:00 | NUR ---
RECIEVED PT FROM OR. ON VENT, PT ON LEVAPED AT 20MCG/MIN. NS AT 75CC/HR. B/P 154/90.
--- NOTE | 2019-11-12 17:00 | NUR ---
LEVAPHED ON AT 10 MCG. B/P 89/50. CHEMISTRY DRAWN AND CR 2.1. PT NOT MAKING MUCH URINE. DR CHERY HERE. NS BOLUS ORDERED.
[2019-11-12 17:01] LABS: ANION GAP 17.7 mmol/L (8-16); CARBON DIOXIDE 22.5 mmol/L (21.0-32.0); CREATININE - SERUM 2.1 mg/dL (0.6-1.3); POTASSIUM - SERUM 3.2 mmol/L (3.5-5.1)
[2019-11-12 17:02] LABS: BASOPHILS 0.1 % (0-2); EOSINOPHILS 0 % (0-7); HEMATOCRIT 49.5 % (36.0-48.0); HEMOGLOBIN 15.8 g/dL (12-16); IMMATURE GRANULOCYTES 0.5 % (0-5); LYMPHOCYTES 7.4 % (15-50); MCH 27.7 pg (26.0-34.0); MCHC 31.9 g/dL (31.0-37.0); MCV 86.8 fL (80.0-100.0); MEAN PLATELET VOLUME 10.9 fL (7.4-10.4); MONOCYTES 3.8 % (2-11); NEUTROPHILS 88.2 % (40-80); PLATELET COUNT 387 10x3/uL (130-400); WBC 20.5 10x3/uL (4.8-10.8)
--- NOTE | 2019-11-12 17:45 | NUR ---
DR ELLIOTT OUT OF OR. UPDATE GIVEN. LR ORDER 1 LITER BOLUS.
[2019-11-13] VITALS (94 sets, daily range): BP systolic 76–123; BP diastolic 34–92
[2019-11-13 06:23] LABS: ANION GAP 13.7 mmol/L (8-16); CALCIUM 7.3 mg/dL (8.5-10.1); CARBON DIOXIDE 23.7 mmol/L (21.0-32.0); MAGNESIUM - SERUM 1.6 mg/dL (1.8-2.4); POTASSIUM - SERUM 3.4 mmol/L (3.5-5.1)
--- NOTE | 2019-11-13 07:00 | NUR ---
ASSESSMENT COMPLETE PER FLOWSHEET.
[2019-11-13 07:18] LABS: BASOPHILS 0.1 % (0-2); EOSINOPHILS 0 % (0-7); HEMATOCRIT 43.3 % (36.0-48.0); HEMOGLOBIN 13.8 g/dL (12-16); IMMATURE GRANULOCYTES 0.5 % (0-5); LYMPHOCYTES 11.7 % (15-50); MCH 27.9 pg (26.0-34.0); MCHC 31.9 g/dL (31.0-37.0); MCV 87.5 fL (80.0-100.0); MEAN PLATELET VOLUME 10.9 fL (7.4-10.4); NEUTROPHILS 81.7 % (40-80); PLATELET COUNT 322 10x3/uL (130-400); RBC 4.95 10x6/uL (4.00-5.40); RDW 15.4 % (11.5-14.5); WBC 15.4 10x3/uL (4.8-10.8)
[2019-11-13 07:19] LABS: CREATININE - SERUM 1.4 mg/dL (0.6-1.3); PHOSPHOROUS 3.4 mg/dL (2.5-4.9)
--- NOTE | 2019-11-13 08:01 | OP ---
PATIENT NAME: ADITYA NGUYENZABETH MEDICAL RECORD: [id number] :69 LOCATION:[facility] D.2304 ADMISSION DATE:11/11/19 SURGEON: PAT ELLIOTT MD DATE OF OPERATION: 11/12/2019 SURGEON: Pat Elliott MD PREOPERATIVE DIAGNOSES: 1. Strangulated incarcerated recurrent incisional hernia. 2. Necrotic small bowel, sepsis, acute kidney injury, morbid obesity. POSTOPERATIVE DIAGNOSES: 1. Strangulated incarcerated recurrent incisional hernia. 2. Necrotic small bowel, sepsis, acute kidney injury, morbid obesity. PROCEDURE PERFORMED: Strangulated incarcerated recurrent incisional hernia repair, small bowel resection, left subclavian central venous line. ANESTHESIA: General. COMPLICATIONS: None. SPECIMENS: Small bowel. Case was grossly contaminated. OPERATIVE COURSE: After consent was obtained, the patient was taken to the operating room and placed in the supine position on the operating table. Next, general anesthesia was given via endotracheal intubation. Thereafter, a timeout was performed to confirm the correct patent and procedure. General anesthesia was given via endotracheal intubation. Chest was prepped and draped in typical sterile fashion. Local anesthetic was administered. Anatomic landmark was identified and the left subclavian vein was cannulated on the first pass. A guidewire was placed. The skin incision was made. A dilator was then passed over the wire in a standard Seldinger fashion. The triple lumen catheter was then passed over the wire in a standard Seldinger fashion. A Biopatch was placed. It was secured to the skin using 2-0 nylon suture and a sterile dressing. Next, the abdomen was prepped and draped in the typical sterile fashion. Local anesthetic was injected in the left upper quadrant at Bobby's point. A stab incision was made with 11-blade scalpel. Using a 5-mm bladeless optical trocar, the abdomen was entered under direct laparoscopic vision. Adequate pneumoperitoneum was achieved. Abdominal cavity was inspected. No evidence of bowel injury. No evidence of bleeding. Two additional 5-mm trocars was then placed into the left lower and left lateral quadrants under direct laparoscopic vision. Lysis of adhesions was performed. The patient had multiple midline incisional hernia repairs prior. Preoperative CT scan showed incarcerated recurrent incisional hernia. During our lysis of adhesions, we were able to encounter the fascial edges. The bowel was quite edematous and dusky. The fascia was incised using electrocautery to release the tension and extend the hernia opening. Once this was done, we were able to reduce the small bowel from within the hernia sac. The hernia sac was approximately 8 x 10 cm in size. Upon reducing the bowel, it was noted that there was full thickness necrosis of a large loop of small bowel from within the hernia sac. A small midline incision was then made through the previous incision. The 10-blade scalpel dissection carried through subcutaneous tissue and hernia sac using electrocautery. The fascia was opened with electrocautery and the abdomen was desufflated. The incision was extended through the hernia in the superior and OPERATIVE REPORT [id number] ADITYA NGUYEN inferior directions. An Ac wound retractor was placed. The small bowel was extracorporealized. An area of necrotic small bowel between 20 and 30 cm was identified. Mesenteric window was created. The proximal and distal margins of healthy appearing distal small bowel enterotomies were made with the Bovie. Common enterotomy was made with a linear CHARLIE-75 stapler. The common enterotomy was then closed with a linear GI stapler. The necrotic small bowel mesentery was taken using the Harmonic scalpel. Once the mesentery was transected, it was passed off the field and sent for permanent pathology. The mesenteric window was then closed using interrupted 3-0 Vicryl suture. The staple line was imbricated using 3-0 Vicryl suture. The abdomen was copiously irrigated and suctioned. The small bowel was run from the ligament of Treitz to the small bowel anastomosis and distal to the terminal ileum. No evidence of bowel injury. No evidence of bleeding. Given the abdomen was copiously irrigated and suctioned, two MIKE drains were then placed into the abdominal cavity through the left lateral and left lower trocars sites. At this time, the hernia was closed primarily using #1 looped PDS. A wound VAC was placed into the subcutaneous tissue wound bed and placed this to suction with good seal. The MIKE drain sutured to the skin using 2-0 nylon suture. At the end of the case, all needle and instrument counts were correct. No complications occurred. The patient was transferred to ICU intubated in critical condition. TRANSINT:[id number] Voice Confirmation ID: [id number] DOCUMENT ID: [id number] PAT ELLIOTT MD at 0801 CC: [id number] DICTATION DATE: 11/12/19 155 GLOBAL ACCOUNT MANAGER: 11/12/19 2305 ADM IN [place] [id number] [place] [id number]
--- NOTE | 2019-11-13 09:40 | NUR ---
LR BOLUS INFUSING AT 999.
--- NOTE | 2019-11-13 10:58 | NUR ---
Nutrition follow-up: Pt s/p hernia repair for incarcerated hernia Pt intubated, sedated Levophed Wt: 297# NPO Will need nutrition support started within 24 hours if medically feasible. RDN following.
--- NOTE | 2019-11-13 11:00 | NUR ---
REASSESSED. NO CHANGES NOTED.
--- NOTE | 2019-11-13 15:00 | NUR ---
REASSESSED NO CHANGES NOTED.
[2019-11-13 16:08] LABS: MAGNESIUM - SERUM 1.7 mg/dL (1.8-2.4); POTASSIUM - SERUM 3.7 mmol/L (3.5-5.1)
--- NOTE | 2019-11-13 17:48 | NUR ---
BATH AND LINENS CHANGED. WILL CONTINUE TO MONITOR.
--- NOTE | 2019-11-13 18:30 | NUR ---
DR ELLIOTT NOTIFIED OF OUTPUT LR 500CC BOLUS GIVEN.
--- NOTE | 2019-11-13 20:00 | NUR ---
ICE PACKS PLACED IN GROIN AND AXILLARY AREA FOR INCREASED TEMP. WILL CONTINUE TO MONITOR.
--- NOTE | 2019-11-13 23:00 | NUR ---
REASSESSMENT COMPLETE. WILL CONTINUE TO MONITOR.
[2019-11-14] VITALS (78 sets, daily range): BP systolic 84–122; BP diastolic 40–79
[2019-11-14 06:46] LABS: CALCIUM 7.1 mg/dL (8.5-10.1); CARBON DIOXIDE 24.2 mmol/L (21.0-32.0); CREATININE - SERUM 1.2 mg/dL (0.6-1.3); MAGNESIUM - SERUM 1.8 mg/dL (1.8-2.4); POTASSIUM - SERUM 3.2 mmol/L (3.5-5.1)
[2019-11-14 06:50] LABS: PHOSPHOROUS 1.7 mg/dL (2.5-4.9)
--- NOTE | 2019-11-14 07:00 | NUR ---
REPORT RECEIVED. ASSESSMENT COMPLETE PER FLOW SHEET. VSS. PT RESTING COMFORTABLY WILL CONTINUE TO MONITOR
[2019-11-14 07:03] LABS: BASOPHILS 0.2 % (0-2); EOSINOPHILS 0 % (0-7); HEMATOCRIT 38.1 % (36.0-48.0); HEMOGLOBIN 11.8 g/dL (12-16); IMMATURE GRANULOCYTES 0.4 % (0-5); LYMPHOCYTES 12.2 % (15-50); MCH 27.8 pg (26.0-34.0); MEAN PLATELET VOLUME 10.9 fL (7.4-10.4); NEUTROPHILS 82.2 % (40-80); PLATELET COUNT 267 10x3/uL (130-400); RBC 4.25 10x6/uL (4.00-5.40); RDW 15.9 % (11.5-14.5)
[2019-11-14 07:04] LABS: MCV 89.6 fL (80.0-100.0); WBC 19.6 10x3/uL (4.8-10.8)
--- NOTE | 2019-11-14 09:15 | NUR ---
DR ELLOITT AT BEDSIDE. NO NEW CHANGES WILL CONTINUE TO MONITOR
--- NOTE | 2019-11-14 11:00 | NUR ---
REASSESSMENT COMPLETE PER FLOW SHEET. VSS. PT RESTING COMFORTABLY WILL CONTINUE TO MONITOR
--- NOTE | 2019-11-14 13:15 | NUR ---
SPOKE WITH FAMILY AT THIS TIME. UPDATE GIVEN.
--- NOTE | 2019-11-14 15:00 | NUR ---
REASSESSMENT COMPLETE PER FLOW SHEET. VSS. PT RESTING COMFORGABLY WILL CONTINUIE TO MONITOR
--- NOTE | 2019-11-14 15:26 | EC ---
PATIENT:ADITYA NGUYEN DATE OF SERVICE: 11/11/19 SEX: F MEDICAL RECORD: [id number] DATE OF : 69 LOCATION:[facility] AGE OF PATIENT: 54 ADMISSION DATE: 11/11/19 REFERRING PHYSICIAN: INTERPRETING PHYSICIAN: DAVID BRUSH MD ECHOCARDIOGRAM REPORT ECHO CHARGES 5 ECHO LIMITED Date: 11/12/19 CLINICAL DIAGNOSIS: SOB, HTN, PREVIOUS CHF? ECHOCARDIOGRAPHIC MEASUREMENTS (adult normal given) AC root (d.<3.7cm) cm LV Septum d (<1.2 cm> 1.0 cm Valve Excursion cm LV Septum (systole) 1.2 cm Left Atria (s.<4.0cm> cm LVPW d(<1.2cm) 1.0 cm RV (d.<2.3cm) cm LVPW (sytole) 1.1 cm LV diastole(<5.6CM) 4.5 cm MV E-F(>70mm/sec) cm LV systole 3.8 cm LVOT Diameter cm MV exc.(>10mm) cm Est.ejection fraction (50-75%) % DOPPLER: LVIT cm/sec A 67 cm/sec E 42 cm/sec LA cm/sec RVSP 14.6 mmHg LVOT 57 cm/sec AOP1/2T m/s Asc. Ao 94 cm/sec RVOT cm/sec RA cm/sec PA cm/sec AV Gradient Peak 3.5 mmHg AV Mean 1.7 mmHg AV Area cm MV Gradient Peak 6.6 mmHg MV Mean 1.8 mmHg MV Area cm COMMENTS: Slab Off Mill Tender: Shantel OLIVEIRAGOGO ENRIQUE Vice President Planning: 3 Dr. Oliveira TAPE# PACS Pericardial Effusion N DATE OF SERVICE: Adequate 2D, color flow imaging, spectral Doppler, and M-Mode. No LVH. LV internal dimension is normal. Wall motion is normal. EF is greater than or equal to 55%. Aortic valve is tricuspid. No evidence of stenosis by Doppler interrogation. Left atrium is normal. Mitral valve shows no prolapse. Trace MR. Right-sided chambers are grossly normal. Trace TR. TRANSINT:[id number] Voice Confirmation ID: [id number] DOCUMENT ID: [id number] ECHOCARDIOGRAM REPORT [id number] ADITYA NGUYEN DAVID BRUSH MD at 1526 CC: [id number] DICTATION DATE: 11/12/19 1541 SHIP RUNNER: 11/12/19 2152 ADM IN [place] [id number] [place] [id number]
--- NOTE | 2019-11-14 17:00 | NUR ---
COMPLETE BB LINEN CHANGE ADM.
[2019-11-15] VITALS (24 sets, daily range): BP systolic 88–150; BP diastolic 50–95
[2019-11-15 06:48] LABS: BASOPHILS 0.2 % (0-2); HEMATOCRIT 32.4 % (36.0-48.0); HEMOGLOBIN 9.7 g/dL (12-16); IMMATURE GRANULOCYTES 0.5 % (0-5); LYMPHOCYTES 11.7 % (15-50); MCH 26.9 pg (26.0-34.0); MCHC 29.9 g/dL (31.0-37.0); MEAN PLATELET VOLUME 10.6 fL (7.4-10.4); MONOCYTES 4.4 % (2-11); NEUTROPHILS 82.2 % (40-80); RDW 16.2 % (11.5-14.5); WBC 15.2 10x3/uL (4.8-10.8)
[2019-11-15 06:50] LABS: PLATELET COUNT 197 10x3/uL (130-400)
--- NOTE | 2019-11-15 07:10 | NUR ---
REPORT RECEIVED. ASSESSMENT COMPLETE PER FLOW SHEET. VSS. PT RESTING COMFORTABLY WILL CONTINUE TO MONITOR
[2019-11-15 08:54] LABS: CARBON DIOXIDE 27.2 mmol/L (21.0-32.0); CREATININE - SERUM 0.9 mg/dL (0.6-1.3); MAGNESIUM - SERUM 2.1 mg/dL (1.8-2.4)
[2019-11-15 08:55] LABS: ANION GAP 9.6 mmol/L (8-16); POTASSIUM - SERUM 3.8 mmol/L (3.5-5.1)
[2019-11-15 08:57] LABS: PHOSPHOROUS 0.9 mg/dL (2.5-4.9)
--- NOTE | 2019-11-15 09:10 | NUR ---
DR CHERY AT BEDSIDE GIVEN UPDATE. NO NEW CHANGES WILL CONTNIUE TO MONITOR
--- NOTE | 2019-11-15 10:27 | NUR ---
Nutrition follow-up: Pt intubated; CPAP trials today NPO Labs reviewed Wt: 297# Wound VAC to abdomen RDN following.
--- NOTE | 2019-11-15 11:00 | NUR ---
REASSESSMENT COMPLETE PER FLOW SHEET. VSS. REFER FOR FINDINGS. WILL CNOTINUE TO MONITOR
--- NOTE | 2019-11-15 15:15 | NUR ---
REPORT RECEIVED. ASSESSMENT COMPLETE PER FLOW SHEET. VSS. PT RESTING COMFORTABLY WILL CONTINUE TO MONITOR
--- NOTE | 2019-11-15 22:06 | NUR ---
SPOKE WITH DR CHERY VIA PHONE. UPDATES GIVEN. NO NEW ORDERS AT THIS TIME
[2019-11-16] VITALS (22 sets, daily range): BP systolic 83–126; BP diastolic 33–92
[2019-11-16 07:03] LABS: BASOPHILS 0.2 % (0-2); EOSINOPHILS 3.1 % (0-7); HEMATOCRIT 35.8 % (36.0-48.0); HEMOGLOBIN 10.6 g/dL (12-16); IMMATURE GRANULOCYTES 1.8 % (0-5); LYMPHOCYTES 11.1 % (15-50); MCH 27.2 pg (26.0-34.0); MCHC 29.6 g/dL (31.0-37.0); MEAN PLATELET VOLUME 10.1 fL (7.4-10.4); MONOCYTES 6.8 % (2-11); PLATELET COUNT 193 10x3/uL (130-400); RBC 3.89 10x6/uL (4.00-5.40); RDW 16.8 % (11.5-14.5); WBC 14.7 10x3/uL (4.8-10.8)
[2019-11-16 07:16] LABS: CALC OSMOLALITY 308 mosm/kg (275-300); CALCIUM 7.8 mg/dL (8.5-10.1); CARBON DIOXIDE 30.1 mmol/L (21.0-32.0); CREATININE - SERUM 0.8 mg/dL (0.6-1.3); GLUCOSE 140 mg/dL (74-106); MAGNESIUM - SERUM 2.4 mg/dL (1.8-2.4); POTASSIUM - SERUM 3.7 mmol/L (3.5-5.1); SODIUM 153 mmol/L (136-145); UREA NITROGEN 22 mg/dL (7-18); eGFR NON AFRICAN AMERICAN 80 mL/min (90-120)
[2019-11-16 07:20] LABS: PHOSPHOROUS 1.8 mg/dL (2.5-4.9)
[2019-11-16 07:21] LABS: CHLORIDE - SERUM 119 mmol/L (98-107)
--- NOTE | 2019-11-16 15:29 | NUR ---
0700-RECIEVED PER FLOW SHEET-ABG DRAW IN PROGRESS-R BRACHIAL DONNA-NOT ASPIRATING-AND NO VISIBLE WAVE FORM-NOTED BLOOD CLOT IN TUBING AND AT HUB-SAME D/C-WITH TIP-LET BLEED BACK FOR NO ADDITIONAL CLOT-R RADIAL WEAK AND EQUIVALENT TO L RADIAL-BIPAP IN PLACE 0850-SPOKE TO ON TELEPHONE AND ADDRESSED ALL [id number] TRACHEAL SUCTION FOR LARGE AMOUNT -BIPAP MASK REPLACED-O2 SAT DECREASED TO 88%-RECOVERED TO 92% 1000-DR ELLIOTT AT BEDSIDE -WOUND VAC-DRG CHANGED DIRECTED-TISSUE PINK AND NO DRAINAGE-NO ODOUR-LAVAGED AREA WITH STERILE SALINE TO DISLODGE OLD WOUND SPONGE--NEW PLACED AND SEALED PER PROTOCOL-VERBAL REPORT GIVEN TO DR ELLIOTT 1100-DR BURKS AT [facility] AND UPDATE GIVEN
--- NOTE | 2019-11-16 20:00 | NUR ---
RECEIVED REPORT ON PT. REPOSITIONED AND TURNED PT ONTO RIGHT SIDE. BIPAP AND ALL OTHER EQUIPMENT ON AND FUNCTIONING PROPERLY. VITALS SIGNS STABLE. PT IS NON-VERBAL, CONVEYS UNDERSTANDING WITH EYES AND NODDING OF HEAD. NO NEEDS AT THIS TIME. WILL REASSESS AND CONTINUE TO MONITOR.
--- NOTE | 2019-11-16 22:00 | NUR ---
PULLED PT UP IN BED AND TURNED ONTO BACK FOR THIS TURN. PT C/O MOANED IN PAIN UPON MOVEMENT. CONVEYED BY NODDING HER HEAD SHE WANTS PAIN MEDICINE. GAVE MORPHINE 4 MG IV PUSH AND SCHEDULED REGLAN. PT'S CALLED TO CHECK ON HER. GAVE PT MESSAGE FROM . SHE CONVEYED UNDERSTANDING WITH EYES AND NODDING OF HEAD. NO OTHER NEEDS. WILL REASSESS AND CONTINUE TO MONITOR.
[2019-11-17] VITALS (24 sets, daily range): BP systolic 90–122; BP diastolic 59–91
--- NOTE | 2019-11-17 00:15 | NUR ---
PT RESTING QUIETLY, NO S/S OF DISTRESS. VITALS STABLE. TURNED PT ON LEFT SIDE. WILL CONTINUE TO MONITOR.
--- NOTE | 2019-11-17 02:30 | NUR ---
REPOSITIONED AND TURNED PT ONTO HER BACK. VITALS STABLE. PT RESTING QUIETLY, NO S/S OF DISTRESS. WILL CONTINUE TO MONITOR.
--- NOTE | 2019-11-17 04:20 | NUR ---
TURNED PT TO RIGHT SIDE. PT DRY. EMPTIED MALDONADO AND PERFORMED MALDONADO CARE. RODO BLOOD FROM CVL AND SENT TO LAB. CHANGED OUT CVP LINE. PT REQUESTED PAIN MED. GAVE MORPHINE 4 MG IV PUSH. NO OTHER NEEDS. WILL CONTINUE TO MONITOR.
[2019-11-17 05:29] LABS: BASOPHILS 0.3 % (0-2); EOSINOPHILS 3.3 % (0-7); HEMATOCRIT 32.6 % (36.0-48.0); HEMOGLOBIN 9.6 g/dL (12-16); IMMATURE GRANULOCYTES 2.8 % (0-5); LYMPHOCYTES 23.6 % (15-50); MCHC 29.4 g/dL (31.0-37.0); MCV 91.8 fL (80.0-100.0); MONOCYTES 6.1 % (2-11); NEUTROPHILS 63.9 % (40-80); RBC 3.55 10x6/uL (4.00-5.40); RDW 16.8 % (11.5-14.5)
[2019-11-17 05:31] LABS: MEAN PLATELET VOLUME 10.2 fL (7.4-10.4); PLATELET COUNT 221 10x3/uL (130-400); WBC 9.9 10x3/uL (4.8-10.8)
[2019-11-17 05:43] LABS: CALC OSMOLALITY 316 mosm/kg (275-300); CALCIUM 7.5 mg/dL (8.5-10.1); CARBON DIOXIDE 29.5 mmol/L (21.0-32.0); CREATININE - SERUM 0.6 mg/dL (0.6-1.3); GLUCOSE 141 mg/dL (74-106); MAGNESIUM - SERUM 2.3 mg/dL (1.8-2.4); POTASSIUM - SERUM 3.8 mmol/L (3.5-5.1); SODIUM 158 mmol/L (136-145); UREA NITROGEN 19 mg/dL (7-18); eGFR NON AFRICAN AMERICAN > 90 mL/min (90-120)
[2019-11-17 05:49] LABS: PHOSPHOROUS 2.3 mg/dL (2.5-4.9)
[2019-11-17 05:53] LABS: CHLORIDE - SERUM 122 mmol/L (98-107)
--- NOTE | 2019-11-17 06:30 | NUR ---
REPOSITIONED AND TURNED PT ONTO BACK FOR THIS TURN. PT RESTING QUIETLY.
--- NOTE | 2019-11-17 12:48 | NUR ---
0730-RECIEVED PER FLOW SHEET--SR ON MONITOR-BIPAP -PT SLUGGISH TO RESPOND-MOANS FREQUENTLY TO LIGHT TACTILE-ATTEMPTED TO TURN-PUSHED AGAINST NURSE-NOT ABLE TO COMPLETE 0850-SPOKE WITH DR ELLIOTT REGARDING DECREASED PHYSICAL EFFORT-PHYSICAL THERAPY ORDERED 09-DR CHERY IN UNIT-NO CHANGES AT THIS TIME- 1015-ABG DRAWN ORDERED BY RT
--- NOTE | 2019-11-17 19:43 | NUR ---
1700-PT AWAKE AND ALERT-PULLED BIPAP OFF FACE-REFUSED TO HAVE PLACED ON-PLACED ON 6L OXIMYZER-AWARE IN HOSPITAL-SHOWED DISBELIEF THAT SHE HAD ANY SURGERY-ATTEMPTED TO ORIENT-ABLE TO DRINK H2O
--- NOTE | 2019-11-17 21:33 | NUR ---
1900 RECEIVED BEDSIDE REPORT. pT. AWAKE AND ABLE TO RESPOND TO QUESTIONS
--- NOTE | 2019-11-17 21:36 | NUR ---
2100 BIPAP ON PT. RESTING QUIETLY WITH EYES CLOSED
--- NOTE | 2019-11-17 23:35 | NUR ---
2300 RESTING IN BED QUIETLY, BIPAP ON. WILL CONTINUE TO MONITOR
[2019-11-18] VITALS (17 sets, daily range): BP systolic 105–148; BP diastolic 55–93
--- NOTE | 2019-11-18 03:07 | NUR ---
0100 QUIETLY RESTING IN BED
--- NOTE | 2019-11-18 03:14 | NUR ---
PT. AWAKE AND ALERT, ASKING FOR WATER. ABLE TO DRINK WATER WITH NO COMPLICATIONS NOTED. WILL CONTINUE TO MONIOTR
--- NOTE | 2019-11-18 05:12 | NUR ---
PT. HAS HIGH FLOW O2 ON. O2 SAT. AT 98/99% PT DENIES BEING SHORT OF BREATH AND DENIES ANY PAIN. ANSWERS QUESTIONS APPROPRIATELY. WILL CONTINUE TO MONITOR
--- NOTE | 2019-11-18 07:10 | NUR ---
RECEIVED REPORT, PT ALERT THIS AM WANTING WATER, BREATHING LABORED, DENIES NEEDS, BED LOWEST POSITION, CALL LIGHT IN REACH, 6L HF NC, ERICA TO GRAVITY, TRIPLE LUMEN PATENT
--- NOTE | 2019-11-18 09:00 | NUR ---
PT PLACED BACK IN BED AFTER BATH, LINEN CHANGE, AND MALDONADO REMOVAL.
--- NOTE | 2019-11-18 11:00 | NUR ---
WOUND VAC TO ABDOMEN REMOVED, CLEANED, AND REPLACED PER ORDER
--- NOTE | 2019-11-18 11:00 | NUR ---
Nutrition follow-up: Diet just advanced to regular mechanical soft with thin liquids Labs reviewed Wt: 297# Pt to move to floor today RDN following.
--- NOTE | 2019-11-18 11:48 | NUR ---
PT EATING LUNCH, 14L NC ON WHILE EATING, THEN BACK ON BIPAP AFTER LUNCH
--- NOTE | 2019-11-18 11:49 | NUR ---
PT LUNCH IN ROOM STATES SHE WANTS TO WAIT TO EAT
[2019-11-18 12:38] LABS: BASOPHILS 0.5 % (0-2); EOSINOPHILS 1.8 % (0-7); HEMOGLOBIN 10.3 g/dL (12-16); IMMATURE GRANULOCYTES 4.6 % (0-5); LYMPHOCYTES 11.9 % (15-50); MCH 27.5 pg (26.0-34.0); MCHC 30.3 g/dL (31.0-37.0); MCV 90.7 fL (80.0-100.0); MEAN PLATELET VOLUME 10.9 fL (7.4-10.4); MONOCYTES 5.3 % (2-11); NEUTROPHILS 75.9 % (40-80); PLATELET COUNT 189 10x3/uL (130-400); RBC 3.75 10x6/uL (4.00-5.40); RDW 16.8 % (11.5-14.5)
[2019-11-18 12:42] LABS: WBC 13.2 10x3/uL (4.8-10.8)
[2019-11-18 13:07] LABS: CHLORIDE - SERUM 115 mmol/L (98-107); CREATININE - SERUM 0.6 mg/dL (0.6-1.3); POTASSIUM - SERUM 3.5 mmol/L (3.5-5.1); SODIUM 151 mmol/L (136-145); eGFR NON AFRICAN AMERICAN > 90 mL/min (90-120)
[2019-11-18 13:08] LABS: CALC OSMOLALITY 305 mosm/kg (275-300); GLUCOSE 189 mg/dL (74-106); UREA NITROGEN 14 mg/dL (7-18)
--- NOTE | 2019-11-18 13:16 | NUR ---
SLEEPING, NO S/S OF DISTRESS NOTED, BREATHING SHALLOW, O2 HFNC @6L
--- NOTE | 2019-11-18 15:58 | NUR ---
OT NOTE: PT COMPLETED UE AROM TOLERATED. PT COMPLETED UB HYGIENE WITH SETUP/MIN A. PT EXHIBITED IMPAIRED AX TOLERANCE. [phone] THANK YOU,SOLANGE GALLEGO
--- NOTE | 2019-11-18 16:43 | NUR ---
PT BEING TRANSFERRED TO [facility] ROOM 2204 CALLED REPORT TO BAO SCHAFFER. COLLECTED ALL PTS BELONGINGS AND TALKED TO HER ABOUT ROOM CHANGE. PT VERY HAPPY TO HEAR THIS AND READY TO GO. NO FURTHER NEEDS AT THIS TIME.
--- NOTE | 2019-11-18 17:08 | NUR ---
SHE IS FROM ICU, ALERT, TALKING. ASKING ABOUT HER PSYCH MEDS. SHE HAS A LEFT CVL SIDE. THE CALL LIGHT IS WITHIN REACH.
--- NOTE | 2019-11-18 17:15 | NUR ---
SHE HAS A LARGE AREA ON HER LOWER BACK, REDNESS WITH A LARGE BLISTER.
[2019-11-19] VITALS: BP 137/64
--- NOTE | 2019-11-19 03:08 | NUR ---
REC'D. CHGE OF SHIFT WALKING ROUNDS.SITTING UP IN BED 02 HIGH FLOW 5L NC/C. CONTINUES TO C/O SOB ON VERY MINIMAL ACTIVITY.HIGH FLOW ON 5L NC.VOIDED LGE AMT. ON BEDPAN WILL CONTINUE TO MONITOR FOR ANY CHGES. IN RESP.STATUS AND FOLLOW CURRENT PLAN OF CARE.REQUESTING AND ATTEMPTING TO GET UP TO BATHROOM.ATTEMPTIED TO STAND AT BEDSIDE ASSISTED BY MALE EMPLOYEE AND NURSE INSISTING TO GO INTO BATHROOM TOO WINDED ASSISTED USED BEDPAN NOT HAPPY
[2019-11-19 04:00] VITALS: BP 144/85
--- NOTE | 2019-11-19 04:29 | NUR ---
I have reviewed this patient and I concur with the Shift Assessment completed by the Licensed Practical Nurse today this shift.
[2019-11-19 06:56] LABS: BASOPHILS 0.4 % (0-2); EOSINOPHILS 3.8 % (0-7); HEMATOCRIT 35.8 % (36.0-48.0); HEMOGLOBIN 10.8 g/dL (12-16); IMMATURE GRANULOCYTES 5.1 % (0-5); LYMPHOCYTES 15.6 % (15-50); MCH 27.1 pg (26.0-34.0); MCHC 30.2 g/dL (31.0-37.0); MCV 89.9 fL (80.0-100.0); MEAN PLATELET VOLUME 10.4 fL (7.4-10.4); MONOCYTES 6.2 % (2-11); NEUTROPHILS 68.9 % (40-80); RBC 3.98 10x6/uL (4.00-5.40); RDW 16.4 % (11.5-14.5); WBC 13.6 10x3/uL (4.8-10.8)
[2019-11-19 07:03] LABS: PLATELET COUNT 289 10x3/uL (130-400)
--- NOTE | 2019-11-19 07:36 | NUR ---
0630) BED ALARM SOUNDING ENTERED PT. AT WINDOW GOING IN BAG PILL BOTTLE IN HAND EXPLAINED NOT ALLOWED TO HAVE OWN MEDS FROM HOME IN ROOM ATTEMPTED TO TAKE PILL BOTTLE BECAME AGGRESSIVE.0645) WALKING ROUNDS PULLED WOUND VAC OUT.IN BED EYES CLOSED RESP DEEP AND EVEN.AROUSES WHEN NAME CALLED
[2019-11-19 07:51] LABS: CARBON DIOXIDE 28.3 mmol/L (21.0-32.0); CHLORIDE - SERUM 111 mmol/L (98-107); GLUCOSE 151 mg/dL (74-106); MAGNESIUM - SERUM 2.3 mg/dL (1.8-2.4); PHOSPHOROUS 2.5 mg/dL (2.5-4.9); SODIUM 147 mmol/L (136-145); eGFR NON AFRICAN AMERICAN 80 mL/min (90-120)
[2019-11-19 07:52] LABS: CALC OSMOLALITY 293 mosm/kg (275-300); CREATININE - SERUM 0.8 mg/dL (0.6-1.3); UREA NITROGEN 9 mg/dL (7-18)
--- NOTE | 2019-11-19 08:56 | NUR ---
SHE IS LAYING LONG WAYS ON THE BED. SHE IS VERY SLEEPY. THE NIGHT NURSE FOUND A BOTTLE OF ALPRAZOLAM. I TOOK THEM AND PUT THEM IN OUR NON FLOOR LOCK UP. SHE IS CONFUSED. THE BED ALARM IS ON AND THE CALL LIGHT IS WITHIN REACH.
[2019-11-19 09:07] VITALS: BP 150/73
--- NOTE | 2019-11-19 10:31 | NUR ---
ENTERED ROOM LEFT CVL DRESSING REMOVED AND WOUND VAC DISCONNECTED FROM PT WITH DRESSING HALF OFF. ALL DRESSINGS REPLACED PER PROTOCOL AND DATED. LINEN AND GOWN CHANGED. SUCTION REAPPLIED TO MIKE DRAINS X 2. BED ALARM ON FOR PT SAFETY. CALL LIGHT IN REACH FOR PATIENT. INSTRUCTED TO CALL FOR ASSISTANCE FOR SAFETY AND TO NOT REMOVE DRESSINGS.
[2019-11-19 12:42] VITALS: BP 140/85
[2019-11-19 16:12] VITALS: BP 137/83
--- NOTE | 2019-11-19 17:11 | NUR ---
OT NOTE: PT COMPLETED SUPINE TO SIT WITH MAX A. PT COMPLETED EOB SITTING BALANCE WITH SBA. PT COMPLETED ADL MOB WITH RW WITH CGA/MIN A. PT COMPLETED OMAR GOWN WITH MOD A. PT REQUIRED TOTAL A WITH OMAR/DOFF SOCKS. PT IS EASILY FATIGUED. [phone] THANK YOU,SOLANGE WHITTINGTON
--- NOTE | 2019-11-19 17:15 | NUR ---
HELPED TO THE BATHROOM, WHEN I TOUGHED HER LEFT SHOULDER IT FELT HARDER THAN THE RIGHT ONE. HER LEFT SHOULDER, ARM, HAND ARE SWOLLEN. I STOPPED THE IV FLUID AND CALL THE SURGEON OUTBOARD SYSTEM OPERATOR.
--- NOTE | 2019-11-19 17:30 | NUR ---
WHEN I WENT BACK IN THE ROOM TO SEE IF THE OTHER NURSE HAD HELPED HER BACK TO THE BED. SHE WAS SETTING UP AGAINST THE WALL. SHE STATES "SHE SAT DOWN IN THE FLOOR". SHE DOES NOT HAVE ANY JARAMILLO ON HER AND SHE STATES " I AM NOT HURT".
--- NOTE | 2019-11-19 19:15 | NUR ---
DANIELA GORE, OUR PSYCHOLOGY INTERN LOOKED AT THE CHEST X RAY AND COMFORMED IT WAS OK TO USE THE CENTRAL LINE AGAIN.
[2019-11-19 20:00] VITALS: BP 114/62
--- NOTE | 2019-11-19 20:30 | NUR ---
REC'D. CHGE OF SHIFT WALKING ROUNDS.UP BEDSIDE CHAIR FAMILY MEMBER AR BEDSIDE.WOUND VAC REMAINS INTACT TO BELLY BUTTON. MIKE DRAINS X2.ALERT BUT SOME WHAT CONFUSED AT PRESENT TIME.SCD'S OFF PER REQUEST.WILL CONTINUE TO MONITOR FOR ANY CHGES AND FOLLOW CURRENT PLAN OF CARE.
[2019-11-20] VITALS: BP 96/41
--- NOTE | 2019-11-20 03:52 | NUR ---
I have reviewed this patient and I concur with the Shift Assessment completed by the Licensed Practical Nurse today this shift.
[2019-11-20 04:00] VITALS: BP 102/55
[2019-11-20 08:09] LABS: CALC OSMOLALITY 288 mosm/kg (275-300); CALCIUM 8.5 mg/dL (8.5-10.1); CARBON DIOXIDE 28.8 mmol/L (21.0-32.0); CHLORIDE - SERUM 111 mmol/L (98-107); GLUCOSE 127 mg/dL (74-106); SODIUM 145 mmol/L (136-145); UREA NITROGEN 7 mg/dL (7-18)
[2019-11-20 08:10] LABS: CREATININE - SERUM 0.5 mg/dL (0.6-1.3); POTASSIUM - SERUM 3.8 mmol/L (3.5-5.1); eGFR NON AFRICAN AMERICAN > 90 mL/min (90-120)
[2019-11-20 09:10] VITALS: BP 109/48
[2019-11-20 09:34] LABS: BASOPHILS 0.4 % (0-2); EOSINOPHILS 6.3 % (0-7); HEMATOCRIT 34.1 % (36.0-48.0); HEMOGLOBIN 10.5 g/dL (12-16); IMMATURE GRANULOCYTES 5.9 % (0-5); MCH 27.3 pg (26.0-34.0); MCHC 30.8 g/dL (31.0-37.0); MCV 88.6 fL (80.0-100.0); MEAN PLATELET VOLUME 10.7 fL (7.4-10.4); MONOCYTES 4.8 % (2-11); NEUTROPHILS 59.6 % (40-80); PLATELET COUNT 324 10x3/uL (130-400); RBC 3.85 10x6/uL (4.00-5.40); RDW 16.2 % (11.5-14.5); WBC 12.8 10x3/uL (4.8-10.8)
--- NOTE | 2019-11-20 11:17 | NUR ---
RESTING IN BED, NO DISTRESS NOTED, DR ELLIOTT SAW THIS AM, STATES TO PULL MIKE DRAINS, WOUND VAC TO ABD, O2 PER NC AT 5L, IV PER CENTRAL LINE
[2019-11-20 12:53] VITALS: BP 96/57
--- NOTE | 2019-11-20 13:02 | NUR ---
Nutrition follow-up: Visited with pt re: mechanical soft diet Pt reports appetite has improved; ate about 50% of breakfast Pt with some loose stools noted Labs reviewed Wt: 297# Pt states she is not diabetic; however, glucose is elevated 2/2 steroid use. Will provide food choices and honor food preferences; however, RDN talked to pt re: elevated glucose and high sugar intake. Will not be able to provide if glucose elevated. RDN following.
--- NOTE | 2019-11-20 13:29 | NUR ---
OT NOTE:PT LIEING IN BED.. SLIGHTLY RESISTANT TO GET UP TODAY...ALSO SEEMED LETHARGIC. BED MOB WITH SPV; ABLE TO AMB TO BATHROOM WITH WALKER AND CGA; MIN ASSIST WITH HYGIENE; MIN/MOD FOR DRESSING,, SET UP FOR GROOMING. AMB INTO HALLWAY WITH WALKER, MIN ASSIST X 2 AND ASSIST WITH EQUIP INCLUDING 02, IV, AND WOUND VAC. PT AMB APPROX 20 FT..SHE STATED THAT SHE DIDNT NEED TO WALK OR DO THERAPY ANYMORE BECAUSE SHE WAS GOING TO HAVE A HIRED HOME HEALTH NURSE STAY WITH HER. EDUCATED PT ON IMPORTANCE OF RECEIVING THERAPY WHILE SHE WAS IN HOSPITAL TO IMPROVE ENDURANCE, ADLS, AND MOBILTY. PT NOT REALLY INTERESTED. PT ALSO ASKING WHO SHE NEEDS TO TALK TO ABOUT SOME NARCOTICS BEING STOLEN FROM HER PURSE. EXPLAINED TO PT THAT SHE IS NOT SUPPOSED TO HAVE THEM WITH HER AND THEY MAY HAVE BEEN LOCKED UP FOR SAFE KEEPING. PT REFUSED TO SIT UP IN CHAIR BUT WANTED TO SIT ON EOB AND GO THROUGH HER PURSE IN ATTEMPTS TO FIND MEDS.. PT WITH CALL LIGHT NEXT TO HER.. INSTRUCTED TO USE CALL LIGHT WHEN NEEDING TO GO TO BATHROOM. KEMAR BARNES, OTR/L [phone]
--- NOTE | 2019-11-20 14:00 | NUR ---
MIKE REMOVED X2, ARANZA WELL, NO BLEEDING NOTED
--- NOTE | 2019-11-20 14:36 | NUR ---
WOUND VAC CHANGED YESTERDAY, WILL NOT CHANGE TODAY, CENTRAL LINE DRESSING CHANGED BY ELIO THIS AM
[2019-11-20 17:05] VITALS: BP 125/56
--- NOTE | 2019-11-20 17:30 | NUR ---
OT NOTE: PT COMPLETED EOB SITTING WITH SPV. PT COMPLETED SIT TO STAND WITH CGA. PT COMPLETED SIMPLE FACE HYGIENE WITH SETUP. PT STATED SHE IS FINE AND DOES NOT REQUIRE THERAPY. NARVAEZ WILL NOTIFY OTR. PT EXHIBITED SELF LIMITING BEHAVIOR. PT IS EASILY FATIGUED, PT STATES HER CRYPTANALYST IS ALSO A THERAPIST. PT STATED SHE HAS RAISED 13 CHILDREN AND IS ACTIVE AND INDEPENDENT. SHE STATED SHE WILL PRIVATELY PAY CRYPTANALYST FOR THERAPY ONCE DISCHARGED. NURSING AWARE. [phone] THANK YOU,SOLANGE WHITTINGTON
[2019-11-20 20:00] VITALS: BP 96/66
[2019-11-21] VITALS: BP 114/57
--- NOTE | 2019-11-21 02:48 | NUR ---
ALERT AND ORENTD ABLE TO VOICE NEEDS AND WANTS TO STAFF. WATER AND CALL LIGHT IN REACH. O2 AT 2 LETERS VIA N/C. UP WITH ASSIST.WOUND VAC IN PLACE AND WORKING TO ABD INCISION. CHECKED OFTEN FOR NEEDS AND SAFETY.
[2019-11-21 04:00] VITALS: BP 99/61
[2019-11-21 06:44] LABS: HEMATOCRIT 32.1 % (36.0-48.0); HEMOGLOBIN 9.9 g/dL (12-16); MCH 27.3 pg (26.0-34.0); MCHC 30.8 g/dL (31.0-37.0); MCV 88.7 fL (80.0-100.0); MEAN PLATELET VOLUME 10.6 fL (7.4-10.4); PLATELET COUNT 302 10x3/uL (130-400); RBC 3.62 10x6/uL (4.00-5.40); RDW 16.3 % (11.5-14.5); WBC 12.3 10x3/uL (4.8-10.8)
[2019-11-21 06:58] LABS: EOSINOPHILS 3 % (0-7); LYMPHOCYTES 24 % (15-50); NEUTROPHILS 73 % (40-80); PLATELET ESTIMATE NORMAL
[2019-11-21 06:59] LABS: ANISOCYTOSIS 1+; CALC OSMOLALITY 286 mosm/kg (275-300); CALCIUM 8.1 mg/dL (8.5-10.1); CARBON DIOXIDE 28.1 mmol/L (21.0-32.0); CHLORIDE - SERUM 106 mmol/L (98-107); CREATININE - SERUM 0.7 mg/dL (0.6-1.3); GLUCOSE 157 mg/dL (74-106); POTASSIUM - SERUM 3.1 mmol/L (3.5-5.1); SODIUM 143 mmol/L (136-145); UREA NITROGEN 10 mg/dL (7-18); eGFR NON AFRICAN AMERICAN > 90 mL/min (90-120)
--- NOTE | 2019-11-21 08:30 | NUR ---
SHE IS IMPULSIVE, GETS UP WHEN WE LEAVE THE ROOM. THE WOUND VAC IS PULLED OFF. SHE REFUSES TO WORK WITH PT. SHE STATES SHE IS LEAVING TODAY. THE LEFT CENTRAL LINE IS LEAKING EVEN WITH A NEW DRESSSING PLACED. HER LEFT SHOULDER, ARM, HAND IS SWOLLEN. THE CALL LIGHT IS WITHIN REACH AND THE BED ALARM IS ON. HER LOWER BACK STILL HAS THE RED AREA WITH BLISTERS AND A BLACK AREA OF SKIN.
[2019-11-21 09:36] VITALS: BP 107/62
--- NOTE | 2019-11-21 12:24 | MORECARE ---
CASE MANAGEMENT DISCHARGE SUMMARY PATIENT: ADITYA NGUYEN UNIT: [id number] ADM DATE: 11/11/19 AGE: 54 : 69 SEX: F ROOM/BED: D.2208 AUTHOR: CHESTER GARCÍA PHYSICIAN: REFERRING PHYSICIAN: ALESHA FORBES MD DATE OF SERVICE: 11/21/19 Discharge Plan Patient Name: ADITYA NGUYEN Facility: [facility]:[place] : 1965 Planned Disposition: Home with Home Health Anticipated Discharge Date: Discharge Date: Expected LOS: Initial Reviewer: [email or web address] Initial Review Date: 11/11/2019 Generated: 11/21/19 1:24 pm Comments DCP- Discharge Planning Updated by [email or web address]: Rica Cutler on 11/21/19 11:[address] Patient Name: ADITYA NGUYEN Admission Status: ER Accout number: [id number] Admission Date: 11-11-2019 : 1965 Admission Diagnosis:UNSPECIFIED ABDOMINAL PAIN Attending: ALESHA FORBES Current LOS: 10 Anticipated DC Date: Planned Disposition: Home with Home Health Primary Insurance: AETNA MEDICARE PPO or HMO Discharge Planning Comments: CM met with patient to complete initial dc planning assessment. CM educated patient on the CM role and verbal consent given by patient to complete assessment. Patient lives at home with her spouse and her boyfriend. 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 CM discussed availability of home health, rehab services, and medical equipment. She will be discharging with a home wound vac from [facility] and . MARIE with [facility]. I will send the referral over to them. IMM signed and explained. She stated that she has all the DME that she needs. She has a walker, crutches, cane, cpap machine, nebulizer, portable O2, a O2 filler, concentrator, Patient denied known discharge needs at this time. CM will continue to follow and will assist as needed with dc plans/needs. Hydraulic Press In Operator: Rica Cutler DCPIA - Discharge Planning Initial Assessment Updated by [email or web address]: Rica Cutler on 11/21/19 12:19 pm * Is the patient Alert and Oriented? Yes * How many steps to enter\exit or inside your home? * PCP ONDINA * [facility] * Preadmission Environment Home with Family * ADLs Independent * Equipment Cane CPAP Crutch Nebulizer Other Oxygen Rolling Walker Walker * List name and contact numbers for known caregivers / representatives who currently or will assist patient after discharge: GRACE NGUYEN ( SPOUSE) [phone] * Verbal permission to speak to the caregivers and representatives has been obtained from the patient. N/A * Community resources currently utilized None * Additional services required to return to the preadmission environment? Yes * Can the patient safely return to the preadmission environment? Yes * Has this patient been hospitalized within the prior 30 days at any hospital? No External Providers External Provider: [facility] [employer] Next Contact Date: Service Request Date: Service Type: Resolution: Reviewer: Comments: Patient Name: ADITYA NGUYEN Page 20799 at 1224 All edits/amendments must be made on the electronic document DICTATION DATE: 11/21/19 1224 ENGINEERING TEACHER: TANI 11/21/19 1224 RPT#: [id number] DC DATE: STATUS: ADM IN [facility] [address] [place] [address] END OF REPORT
--- NOTE | 2019-11-21 12:45 | NUR ---
OT NOTE: PT ADAMENTLY REFUSED THERAPY TODAY. STATED THAT SHE WAS GETTING READY TO GO HOME AND SHE WAS WAITING FOR HER RIDE. STATED THAT SHE HAD ALREADY GONE TO BATHROOM SEVERAL TIMES AND CLEANED UP AND WAS JUST WAITING TO GET OUT. HOWEVER, NURSING REPORTS THAT THERE ARE NO DC ORDERS FOR PT. KEMAR BARNES, OTR/L
--- NOTE | 2019-11-21 12:47 | MORECARE ---
CASE MANAGEMENT DISCHARGE SUMMARY PATIENT: ADITYA NGUYEN UNIT: [id number] ADM DATE: 11/11/19 AGE: 54 : 69 SEX: F ROOM/BED: D.2203 AUTHOR: CHESTER GARCÍA PHYSICIAN: REFERRING PHYSICIAN: ALSEHA FORBES MD DATE OF SERVICE: 11/21/19 Discharge Plan Patient Name: ADITYA NGUYEN Facility: [facility]:[place] : 1965 Planned Disposition: Home with Home Health Anticipated Discharge Date: Discharge Date: Expected LOS: Initial Reviewer: [email or web address] Initial Review Date: 11/11/2019 Generated: 11/21/19 1:46 pm Comments DCP- Discharge Planning Updated by [id number]: Rica Cutler on 11/21/19 11:[address] Patient Name: ADITYA NGUYEN Admission Status: ER Accout number: [id number] Admission Date: 11-11-2019 : 1965 Admission Diagnosis:UNSPECIFIED ABDOMINAL PAIN Attending: ALESHA FORBES Current LOS: 10 Anticipated DC Date: Planned Disposition: Home with Home Health Primary Insurance: AETNA MEDICARE PPO or HMO Discharge Planning Comments: CM met with patient to complete initial dc planning assessment. CM educated patient on the CM role and verbal consent given by patient to complete assessment. Patient lives at home with her spouse and her boyfriend. 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 CM discussed availability of home health, rehab services, and medical equipment. She will be discharging with a home wound vac from [facility] and . JUDE with [facility]. I will send the referral over to them. IMM signed and explained. She stated that she has all the DME that she needs. She has a walker, crutches, cane, cpap machine, nebulizer, portable O2, a O2 filler, concentrator, Patient denied known discharge needs at this time. CM will continue to follow and will assist as needed with dc plans/needs. Professor Computer Science: Rica Cutler DCPIA - Discharge Planning Initial Assessment Updated by [email or web address]: Rica Cutler on 11/21/19 12:19 pm * Is the patient Alert and Oriented? Yes * How many steps to enter\exit or inside your home? * PCP ONDINA * [facility] * Preadmission Environment Home with Family * ADLs Independent * Equipment Cane CPAP Crutch Nebulizer Other Oxygen Rolling Walker Walker * List name and contact numbers for known caregivers / representatives who currently or will assist patient after discharge: GRACE NGUYEN ( SPOUSE) [phone] * Verbal permission to speak to the caregivers and representatives has been obtained from the patient. N/A * Community resources currently utilized None * Additional services required to return to the preadmission environment? Yes * Can the patient safely return to the preadmission environment? Yes * Has this patient been hospitalized within the prior 30 days at any hospital? No External Providers External Provider: [facility] Contact Date: Service Request Date: Service Type: Resolution: Reviewer: Comments: Coverage Notice Reviewer: [email or web address] Ancelmo Cutler Notice Issued Date-Time: 11/21/2019 9:20 Notice Type: IM Discharge Notice Notice Delivered To: Patient Relationship to Patient: Commercial Coordinator Name: Delivery Method: HAND - Hand Delivered Tiffanie Days: Prior Verbal Notification: Recipient Understood Notice: Yes Recipient Signature: Yes Med Rec Note Co-signed by Attending: Coverage Notice Comment: IMM explained, signed, copy given and original placed in medical record. Reviewer: [email or web address] Cutler Notice Issued Date-Time: 11/21/2019 9:20 Notice Type: Patient Choice Letter Notice Delivered To: Patient Relationship to Patient: Commercial Coordinator Name: Delivery Method: HAND - Hand Delivered Tiffanie Days: Prior Verbal Notification: Recipient Understood Notice: Yes Recipient Signature: Yes Med Rec Note Co-signed by Attending: Coverage Notice Comment: jude for hermes Last DP export: 11/21/19 11:24 am Patient Name: ADITYA NGUYEN Page [phone] at 1247 All edits/amendments must be made on the electronic document DICTATION DATE: 11/21/19 1246 RETAIL BUSINESS DEVELOPMENT MANAGER: TANI 11/21/19 1246 RPT#: [id number] DC DATE: STATUS: ADM IN [facility] [address] [place] [address] END OF REPORT
[2019-11-21 12:51] VITALS: BP 134/65
--- NOTE | 2019-11-21 14:04 | MORECARE ---
CASE MANAGEMENT DISCHARGE SUMMARY PATIENT: ADITYA NGUYEN UNIT: [id number] ADM DATE: 11/11/19 AGE: 54 : 69 SEX: F ROOM/BED: D.5726 AUTHOR: RAQUEL,DOC PHYSICIAN: REFERRING PHYSICIAN: ALESHA FORBES MD DATE OF SERVICE: 11/21/19 Discharge Plan Patient Name: ADITYA NGUYEN Facility: [facility]:[place] : 1965 Planned Disposition: Home with Home Health Anticipated Discharge Date: Discharge Date: Expected LOS: Initial Reviewer: [email or web address] Initial Review Date: 11/11/2019 Generated: 11/21/19 3:04 pm Comments DCP- Discharge Planning Updated by [email or web address]: Rica Cutler on 11/21/19 1:[address] [facility] called and stated that they are out of network and the patient will have to pay 50% I will speak with patient and ask her DCP- Discharge Planning Updated by [email or web address]: Rica Cutler on 11/21/19 11:[address] Patient Name: ADITYA NGUYEN Admission Status: ER Accout number: [id number] Admission Date: 11-11-2019 : 1965 Admission Diagnosis:UNSPECIFIED ABDOMINAL PAIN Attending: ALESHA FORBES Current LOS: 10 Anticipated DC Date: Planned Disposition: Home with Home Health Primary Insurance: AETNA MEDICARE PPO or HMO Discharge Planning Comments: CM met with patient to complete initial dc planning assessment. CM educated patient on the CM role and verbal consent given by patient to complete assessment. Patient lives at home with her spouse and her boyfriend. 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 CM discussed availability of home health, rehab services, and medical equipment. She will be discharging with a home wound vac from [facility] and . JUDE with [facility]. I will send the referral over to them. IMM signed and explained. She stated that she has all the DME that she needs. She has a walker, crutches, cane, cpap machine, nebulizer, portable O2, a O2 filler, concentrator, Patient denied known discharge needs at this time. CM will continue to follow and will assist as needed with dc plans/needs. Ict Support Technicians: Rica Cutler DCPIA - Discharge Planning Initial Assessment Updated by [id number]: Rica Cutler on 11/21/19 12:19 pm * Is the patient Alert and Oriented? Yes * How many steps to enter\exit or inside your home? * PCP FARO * Pharmacy [facility] * Preadmission Environment Home with Family * ADLs Independent * Equipment Cane CPAP Crutch Nebulizer Other Oxygen Rolling Walker Walker * List name and contact numbers for known caregivers / representatives who currently or will assist patient after discharge: GRACE NGUYEN ( SPOUSE) [phone] * Verbal permission to speak to the caregivers and representatives has been obtained from the patient. N/A * Community resources currently utilized None * Additional services required to return to the preadmission environment? Yes * Can the patient safely return to the preadmission environment? Yes * Has this patient been hospitalized within the prior 30 days at any hospital? No Coverage Notice Reviewer: [id number] Ancelmo Cutler Notice Issued Date-Time: 11/21/2019 9:20 Notice Type: IM Discharge Notice Notice Delivered To: Patient Relationship to Patient: Solar Electric Installer Name: Delivery Method: HAND - Hand Delivered Tiffanie Days: Prior Verbal Notification: Recipient Understood Notice: Yes Recipient Signature: Yes Med Rec Note Co-signed by Attending: Coverage Notice Comment: IMM explained, signed, copy given and original placed in medical record. Reviewer: [email or web address] Ancelmo Cutler Notice Issued Date-Time: 11/21/2019 9:20 Notice Type: Patient Choice Letter Notice Delivered To: Patient Relationship to Patient: Solar Electric Installer Name: Delivery Method: HAND - Hand Delivered Tiffanie Days: Prior Verbal Notification: Recipient Understood Notice: Yes Recipient Signature: Yes Med Rec Note Co-signed by Attending: Coverage Notice Comment: jude for hermes Quiñones DP export: 11/21/19 11:47 am Patient Name: ADITYA NGUYEN Page [phone] at 1404 All edits/amendments must be made on the electronic document DICTATION DATE: 11/21/19 1404 BENCH SCIENTIST: TANI 11/21/19 1404 RPT#: [id number] DC DATE: STATUS: ADM IN [facility] [address] [place] [address] END OF REPORT
--- NOTE | 2019-11-21 14:19 | MORECARE ---
CASE MANAGEMENT DISCHARGE SUMMARY PATIENT: ADITYA NGUYEN UNIT: [id number] ADM DATE: 11/11/19 AGE: 54 : 69 SEX: F ROOM/BED: D.9704 AUTHOR: RAQUELDOC PHYSICIAN: REFERRING PHYSICIAN: ALESHA FORBES MD DATE OF SERVICE: 11/21/19 Discharge Plan Patient Name: ADITYA NGUYEN Facility: [facility]:[place] : 1965 Planned Disposition: Home with Home Health Anticipated Discharge Date: Discharge Date: Expected LOS: Initial Reviewer: [email or web address] Initial Review Date: 11/11/2019 Generated: 11/21/19 3:19 pm Comments DCP- Discharge Planning Updated by [id number]: Rica Cutler on 11/21/19 1:[address] referral sent to [facility] DCP- Discharge Planning Updated by [email or web address]: Rica Cutler on 11/21/19 1:[address] [facility] called and stated that they are out of network and the patient will have to pay 50% I will speak with patient and ask her DCP- Discharge Planning Updated by [email or web address]: Rica Cutler on 11/21/19 11:[address] Patient Name: ADITYA NGUYEN Admission Status: ER Accout number: [id number] Admission Date: 11-11-2019 : 1965 Admission Diagnosis:UNSPECIFIED ABDOMINAL PAIN Attending: ALESHA FORBES Current LOS: 10 Anticipated DC Date: Planned Disposition: Home with Home Health Primary Insurance: AETNA MEDICARE PPO or HMO Discharge Planning Comments: CM met with patient to complete initial dc planning assessment. CM educated patient on the CM role and verbal consent given by patient to complete assessment. Patient lives at home with her spouse and her boyfriend. 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 CM discussed availability of home health, rehab services, and medical equipment. She will be discharging with a home wound vac from [facility] and . JUDE with [facility]. I will send the referral over to them. IMM signed and explained. She stated that she has all the DME that she needs. She has a walker, crutches, cane, cpap machine, nebulizer, portable O2, a O2 filler, concentrator, Patient denied known discharge needs at this time. CM will continue to follow and will assist as needed with dc plans/needs. Recreation Specialist: Rica Cutler DCPIA - Discharge Planning Initial Assessment Updated by [email or web address]: Rica Cutler on 11/21/19 12:19 pm * Is the patient Alert and Oriented? Yes * How many steps to enter\exit or inside your home? * PCP ONDINA * Pharmacy [facility] * Preadmission Environment Home with Family * ADLs Independent * Equipment Cane CPAP Crutch Nebulizer Other Oxygen Rolling Walker Walker * List name and contact numbers for known caregivers / representatives who currently or will assist patient after discharge: GRACE NGUYEN ( SPOUSE) [phone] * Verbal permission to speak to the caregivers and representatives has been obtained from the patient. N/A * Community resources currently utilized None * Additional services required to return to the preadmission environment? Yes * Can the patient safely return to the preadmission environment? Yes * Has this patient been hospitalized within the prior 30 days at any hospital? No External Providers External Provider: [facility] Next Contact Date: Service Request Date: Service Type: Resolution: Reviewer: Comments: Coverage Notice Reviewer: [email or web address] Ancelmo Cutler Notice Issued Date-Time: 11/21/2019 9:20 Notice Type: IM Discharge Notice Notice Delivered To: Patient Relationship to Patient: Body And Frame Technician Name: Delivery Method: HAND - Hand Delivered Tiffanie Days: Prior Verbal Notification: Recipient Understood Notice: Yes Recipient Signature: Yes Med Rec Note Co-signed by Attending: Coverage Notice Comment: IMM explained, signed, copy given and original placed in medical record. Reviewer: [id number] Ancelmo Cutler Notice Issued Date-Time: 11/21/2019 9:20 Notice Type: Patient Choice Letter Notice Delivered To: Patient Relationship to Patient: Body And Frame Technician Name: Delivery Method: HAND - Hand Delivered Tiffanie Days: Prior Verbal Notification: Recipient Understood Notice: Yes Recipient Signature: Yes Med Rec Note Co-signed by Attending: Coverage Notice Comment: jude for hermes Last DP export: 11/21/19 1:05 pm Patient Name: ADITYA NGUYEN Page [id number] at 1419 All edits/amendments must be made on the electronic document DICTATION DATE: 11/21/191418 WOOD STOCK BLANK HANDLER: TANI 11/21/191418 RPT#: [id number] DC DATE: STATUS: ADM IN [facility] [address] [place] [address] END OF REPORT
--- NOTE | 2019-11-21 15:20 | MORECARE ---
CASE MANAGEMENT DISCHARGE SUMMARY PATIENT: ADITYA NGUYEN UNIT: [id number] ADM DATE: 11/11/19 AGE: 54 : 69 SEX: F ROOM/BED: D.7474 AUTHOR: RAQUELDOC PHYSICIAN: REFERRING PHYSICIAN: ALESHA FORBES MD DATE OF SERVICE: 11/21/19 Discharge Plan Patient Name: ADITYA NGUYEN Facility: [facility]:[place] : 1965 Planned Disposition: Home with Home Health Anticipated Discharge Date: Discharge Date: Expected LOS: Initial Reviewer: [email or web address] Initial Review Date: 11/11/2019 Generated: 11/21/19 4:19 pm Comments DCP- Discharge Planning Updated by [email or web address]: Rica Cutler on 11/21/19 1:[address] referral sent to [facility] DCP- Discharge Planning Updated by [email or web address]: Rica Cutler on 11/21/19 1:[address] [facility] called and stated that they are out of network and the patient will have to pay 50% I will speak with patient and ask her DCP- Discharge Planning Updated by [email or web address]: Rica Cutler on 11/21/19 11:[address] Patient Name: ADITYA NGUYEN Admission Status: ER Accout number: [id number] Admission Date: 11-11-2019 : 1965 Admission Diagnosis:UNSPECIFIED ABDOMINAL PAIN Attending: ALESHA FORBES Current LOS: 10 Anticipated DC Date: Planned Disposition: Home with Home Health Primary Insurance: [employer] MEDICARE PPO or HMO Discharge Planning Comments: CM met with patient to complete initial dc planning assessment. CM educated patient on the CM role and verbal consent given by patient to complete assessment. Patient lives at home with her spouse and her boyfriend. 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 CM discussed availability of home health, rehab services, and medical equipment. She will be discharging with a home wound vac from [facility] and . JUDE with [facility]. I will send the referral over to them. IMM signed and explained. She stated that she has all the DME that she needs. She has a walker, crutches, cane, cpap machine, nebulizer, portable O2, a O2 filler, concentrator, Patient denied known discharge needs at this time. CM will continue to follow and will assist as needed with dc plans/needs. Service Center Supervisor: Rica Cutler DCPIA - Discharge Planning Initial Assessment Updated by [email or web address]: Rica Cutler on 11/21/19 12:19 pm * Is the patient Alert and Oriented? Yes * How many steps to enter\exit or inside your home? * PCP ONDINA * Pharmacy [facility] * Preadmission Environment Home with Family * ADLs Independent * Equipment Cane CPAP Crutch Nebulizer Other Oxygen Rolling Walker Walker * List name and contact numbers for known caregivers / representatives who currently or will assist patient after discharge: GRACE NGUYEN ( SPOUSE) [phone] * Verbal permission to speak to the caregivers and representatives has been obtained from the patient. N/A * Community resources currently utilized None * Additional services required to return to the preadmission environment? Yes * Can the patient safely return to the preadmission environment? Yes * Has this patient been hospitalized within the prior 30 days at any hospital? No Coverage Notice Reviewer: [email or web address] Ancelmo Cutler Notice Issued Date-Time: 11/21/2019 9:20 Notice Type: IM Discharge Notice Notice Delivered To: Patient Relationship to Patient: Tricot Knitter Name: Delivery Method: HAND - Hand Delivered Tiffanie Days: Prior Verbal Notification: Recipient Understood Notice: Yes Recipient Signature: Yes Med Rec Note Co-signed by Attending: Coverage Notice Comment: IMM explained, signed, copy given and original placed in medical record. Reviewer: [id number] Ancelmo Cutler Notice Issued Date-Time: 11/21/2019 9:20 Notice Type: Patient Choice Letter Notice Delivered To: Patient Relationship to Patient: Tricot Knitter Name: Delivery Method: HAND - Hand Delivered Tiffanie Days: Prior Verbal Notification: Recipient Understood Notice: Yes Recipient Signature: Yes Med Rec Note Co-signed by Attending: Coverage Notice Comment: jude for hermes Quiñones DP export: 11/21/19 1:19 pm Patient Name: ADITYA NGUYEN Page [id number] at 1520 All edits/amendments must be made on the electronic document DICTATION DATE: 11/21/191518 PIANO MECHANIC: TANI 11/21/191518 RPT#: [id number] DC DATE: STATUS: ADM IN [facility] [address] [place] [address] END OF REPORT
--- NOTE | 2019-11-21 15:29 | MORECARE ---
CASE MANAGEMENT DISCHARGE SUMMARY PATIENT: ADITYA NGUYEN UNIT: [id number] ADM DATE: 11/11/19 AGE: 54 : 69 SEX: F ROOM/BED: D.2204 AUTHOR: RAQUELDOC PHYSICIAN: REFERRING PHYSICIAN: ALESHA FORBES MD DATE OF SERVICE: 11/21/19 Discharge Plan Patient Name: ADITYA NGUYEN Facility: [facility]:[place] : 1965 Planned Disposition: Home with Home Health Anticipated Discharge Date: Discharge Date: Expected LOS: Initial Reviewer: [email or web address] Initial Review Date: 11/11/2019 Generated: 11/21/19 4:28 pm Comments DCP- Discharge Planning Updated by [email or web address]: Rica Cutler on 11/21/19 2:[address] EARL ALMONTE FOR HOME HEALTH TO CHANGE DRESSING ON MONDAY THEN START M-W-F [facility] DCP- Discharge Planning Updated by [email or web address]: Rica Cutler on 11/21/19 1:[address] referral sent to [facility] DCP- Discharge Planning Updated by [email or web address]: Rcia Cutler on 11/21/19 1:[address] [facility] called and stated that they are out of network and the patient will have to pay 50% I will speak with patient and ask her DCP- Discharge Planning Updated by [email or web address]: Rica Cutler on 11/21/19 11:[address] Patient Name: ADITYA NGUYEN Admission Status: ER Accout number: [id number] Admission Date: 11-11-2019 : 1965 Admission Diagnosis:UNSPECIFIED ABDOMINAL PAIN Attending: ALESHA FORBES Current LOS: 10 Anticipated DC Date: Planned Disposition: Home with Home Health Primary Insurance: [employer] MEDICARE PPO or HMO Discharge Planning Comments: CM met with patient to complete initial dc planning assessment. CM educated patient on the CM role and verbal consent given by patient to complete assessment. Patient lives at home with her spouse and her boyfriend. 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 CM discussed availability of home health, rehab services, and medical equipment. She will be discharging with a home wound vac from [facility] and [facility]. [facility] with [facility]. I will send the referral over to them. IMM signed and explained. She stated that she has all the DME that she needs. She has a walker, crutches, cane, cpap machine, nebulizer, portable O2, a O2 filler, concentrator, Patient denied known discharge needs at this time. CM will continue to follow and will assist as needed with dc plans/needs. Operating Room Technologist: Rica Cutler DCPIA - Discharge Planning Initial Assessment Updated by [email or web address]: Rica Cutler on 11/21/19 12:19 pm * Is the patient Alert and Oriented? Yes * How many steps to enter\exit or inside your home? * PCP ONDINA * [facility] * Preadmission Environment Home with Family * ADLs Independent * Equipment Cane CPAP Crutch Nebulizer Other Oxygen Rolling Walker Walker * List name and contact numbers for known caregivers / representatives who currently or will assist patient after discharge: GRACE NGUYEN ( SPOUSE) [phone] * Verbal permission to speak to the caregivers and representatives has been obtained from the patient. N/A * Community resources currently utilized None * Additional services required to return to the preadmission environment? Yes * Can the patient safely return to the preadmission environment? Yes * Has this patient been hospitalized within the prior 30 days at any hospital? No Coverage Notice Reviewer: [id number] Ancelmo Cutler Notice Issued Date-Time: 11/21/2019 9:20 Notice Type: IM Discharge Notice Notice Delivered To: Patient Relationship to Patient: Cardroom Plastic Card Grader Name: Delivery Method: HAND - Hand Delivered Tiffanie Days: Prior Verbal Notification: Recipient Understood Notice: Yes Recipient Signature: Yes Med Rec Note Co-signed by Attending: Coverage Notice Comment: IMM explained, signed, copy given and original placed in medical record. Reviewer: [id number] Ancelmo Cutler Notice Issued Date-Time: 11/21/2019 9:20 Notice Type: Patient Choice Letter Notice Delivered To: Patient Relationship to Patient: Cardroom Plastic Card Grader Name: Delivery Method: HAND - Hand Delivered Tiffanie Days: Prior Verbal Notification: Recipient Understood Notice: Yes Recipient Signature: Yes Med Rec Note Co-signed by Attending: Coverage Notice Comment: jude for kelsie Last DP export: 11/21/19 2:20 pm Patient Name: ADITYA NGUYEN Page [id number] at 1529 All edits/amendments must be made on the electronic document DICTATION DATE: 11/21/191527 SPORTS MEDICINE COORDINATOR: TANI 11/21/191527 RPT#: [id number] DC DATE: STATUS: ADM IN [facility] [address] [place] [address] END OF REPORT
--- NOTE | 2019-11-21 17:02 | NUR ---
REMOVED THE LEFT CENTRAL LINE, SWITCHED THE WOUND VAC TO THE HOME WOUND VAC. WENT OVER THE PAPERWORK WITH THE PATIENT AND HER , QUESTIONS ANSWERED. TAKEN DOWN STAIRS VIA WHEELCHIAR.
--- NOTE | 2019-11-22 09:07 | MORECARE ---
CASE MANAGEMENT DISCHARGE SUMMARY PATIENT: ADITYA NGUYEN UNIT: [id number] ADM DATE: 11/11/19 AGE: 54 : 69 SEX: F ROOM/BED: D.2202 AUTHOR: RAQUELDOC PHYSICIAN: REFERRING PHYSICIAN: ALESHA FORBES MD DATE OF SERVICE: 11/22/19 Discharge Plan Patient Name: ADITYA NGUYEN Facility: [facility]:[place] : 1965 Planned Disposition: Home with Home Health Anticipated Discharge Date: Discharge Date: 11/21/2019 Expected LOS: Initial Reviewer: [email or web address] Initial Review Date: 11/11/2019 Generated: 11/22/19 10:06 am Comments DCP- Discharge Planning Updated by [email or web address]: Rica Cutler on 11/21/19 2:[address] EARL ALMONTE FOR HOME HEALTH TO CHANGE DRESSING ON MONDAY THEN START M-W-F [facility] DCP- Discharge Planning Updated by [email or web address]: Rica Cutler on 11/21/19 1:[address] referral sent to care [facility] DCP- Discharge Planning Updated by [email or web address]: Rica Cutler on 11/21/19 1:[address] [facility] called and stated that they are out of network and the patient will have to pay 50% I will speak with patient and ask her DCP- Discharge Planning Updated by [id number]: Rica Cutler on 11/21/19 11:[address] Patient Name: ADITYA NGUYEN Admission Status: ER Accout number: [id number] Admission Date: 11-11-2019 : 1965 Admission Diagnosis:UNSPECIFIED ABDOMINAL PAIN Attending: ALESHA FORBES Current LOS: 10 Anticipated DC Date: Planned Disposition: Home with Home Health Primary Insurance: [employer] MEDICARE PPO or HMO Discharge Planning Comments: CM met with patient to complete initial dc planning assessment. CM educated patient on the CM role and verbal consent given by patient to complete assessment. Patient lives at home with her spouse and her boyfriend. 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 CM discussed availability of home health, rehab services, and medical equipment. She will be discharging with a home wound vac from [facility] and [place]. JU[facility] with [facility]. I will send the referral over to them. IMM signed and explained. She stated that she has all the DME that she needs. She has a walker, crutches, cane, cpap machine, nebulizer, portable O2, a O2 filler, concentrator, Patient denied known discharge needs at this time. CM will continue to follow and will assist as needed with dc plans/needs. Director Professional Services: Rica Cutler DCPIA - Discharge Planning Initial Assessment Updated by [id number]: Riac Cutler on 11/21/19 12:19 pm * Is the patient Alert and Oriented? Yes * How many steps to enter\exit or inside your home? * PCP ONDINA * Pharmacy [facility] * Preadmission Environment Home with Family * ADLs Independent * Equipment Cane CPAP Crutch Nebulizer Other Oxygen Rolling Walker Walker * List name and contact numbers for known caregivers / representatives who currently or will assist patient after discharge: GRACE NGUYEN ( SPOUSE) [phone] * Verbal permission to speak to the caregivers and representatives has been obtained from the patient. N/A * Community resources currently utilized None * Additional services required to return to the preadmission environment? Yes * Can the patient safely return to the preadmission environment? Yes * Has this patient been hospitalized within the prior 30 days at any hospital? No Coverage Notice Reviewer: [id number] Ancelmo Cutler Notice Issued Date-Time: 11/21/2019 9:20 Notice Type: IM Discharge Notice Notice Delivered To: Patient Relationship to Patient: Press Operator Apprentice Name: Delivery Method: HAND - Hand Delivered Tiffanie Days: Prior Verbal Notification: Recipient Understood Notice: Yes Recipient Signature: Yes Med Rec Note Co-signed by Attending: Coverage Notice Comment: IMM explained, signed, copy given and original placed in medical record. Reviewer: [id number] Ancelmo Cutler Notice Issued Date-Time: 11/21/2019 9:20 Notice Type: Patient Choice Letter Notice Delivered To: Patient Relationship to Patient: Press Operator Apprentice Name: Delivery Method: HAND - Hand Delivered Tiffanie Days: Prior Verbal Notification: Recipient Understood Notice: Yes Recipient Signature: Yes Med Rec Note Co-signed by Attending: Coverage Notice Comment: jude for kelsie Quiñones DP export: 11/21/19 2:29 pm Patient Name: ADITYA NGUYEN Page [id number] at 0907 All edits/amendments must be made on the electronic document DICTATION DATE: 11/22/19905 SMALL BUSINESS BANKING OFFICER: TANI 11/22/19905 RPT#: [id number] DC DATE:11/21/19 STATUS: DIS IN [facility] [address] [place] [address] END OF REPORT
[2019-11-22] MEDS ORDERED: LOVENOX120 MG/0.8 SC (18:57)
[2019-11-22] MEDS ORDERED: VIBRAMYCIN 100100 MG PO (18:57)
[2019-11-22] MEDS ORDERED: HYDROCODON-ACE1 EA10 PO (19:00)
== END 2019-11-21 17:05 | disposition home health service (06) | DRG 329 ==
LOC: D.ER 14:37 → D.MS 18:23 → D.ICU 18:23 → D.MS 11-18 16:44
PROVIDERS: Family Medicine; Surgery; ADMIT Emergency Medicine; ATTEND Emergency Medicine
PROC: 0WQF4ZZ Repair Abdominal Wall, Percutaneous Endoscopic Approach (ICD-10-PCS; principal; 2019-11-12 09:15)
PROC: 0DT84ZZ Resection of Small Intestine, Percutaneous Endoscopic Approach (ICD-10-PCS; 2019-11-12 09:15)
DX: K43.6 Other and unspecified ventral hernia with obstruction, without gangrene (principal); A41.9 Sepsis, unspecified organism; J95.821 Acute postprocedural respiratory failure; R65.21 Severe sepsis with septic shock; Z68.43 Body mass index [BMI] 50.0-59.9, adult; J98.11 Atelectasis; I11.0 Hypertensive heart disease with heart failure; I50.9 Heart failure, unspecified; E78.5 Hyperlipidemia, unspecified; E87.6 Hypokalemia; J44.9 Chronic obstructive pulmonary disease, unspecified; G47.33 Obstructive sleep apnea (adult) (pediatric); E66.01 Morbid (severe) obesity due to excess calories; F31.9 Bipolar disorder, unspecified; F41.8 Other specified anxiety disorders; D64.9 Anemia, unspecified

== ENCOUNTER 2019-11-22 15:38 | Emergency (ER) | payer MEDICARE ==
[2019-11-12 11:12] VITALS: Ht 160 cm; Wt 142.3 kg
[~2019-11-22] VITALS: Ht 160 cm; Wt 142.3 kg
[2019-11-22] MEDS ORDERED: VIBRAMYCIN 100100 MG PO (18:57)
[2019-11-22] MEDS ORDERED: LOVENOX120 MG/0.8 SC (18:57)
[2019-11-22] MEDS ORDERED: HYDROCODON-ACE1 EA10 PO (19:00)
[2019-11-22 19:07] LABS: BASOPHILS 0.2 % (0-2); EOSINOPHILS 3.6 % (0-7); HEMATOCRIT 34.8 % (36.0-48.0); HEMOGLOBIN 10.9 g/dL (12-16); IMMATURE GRANULOCYTES 1.9 % (0-5); LYMPHOCYTES 17.8 % (15-50); MCH 27.3 pg (26.0-34.0); MCHC 31.3 g/dL (31.0-37.0); MCV 87.2 fL (80.0-100.0); MEAN PLATELET VOLUME 10.7 fL (7.4-10.4); MONOCYTES 5.8 % (2-11); NEUTROPHILS 70.7 % (40-80); PLATELET COUNT 160 10x3/uL (130-400); RBC 3.99 10x6/uL (4.00-5.40)
[2019-11-22 19:20] LABS: CALC OSMOLALITY 292 mosm/kg (275-300); CALCIUM 7.9 mg/dL (8.5-10.1); CARBON DIOXIDE 32.3 mmol/L (21.0-32.0); CHLORIDE - SERUM 107 mmol/L (98-107); CREATININE - SERUM 0.6 mg/dL (0.6-1.3); GLUCOSE 129 mg/dL (74-106); POTASSIUM - SERUM 3.4 mmol/L (3.5-5.1); SODIUM 147 mmol/L (136-145); UREA NITROGEN 9 mg/dL (7-18); eGFR NON AFRICAN AMERICAN > 90 mL/min (90-120)
[2019-11-22 19:26] LABS: ALBUMIN 2.3 g/dL (3.4-5.0); ALKALINE PHOSPHATASE 80 U/L (30-120); ALT (SGPT) 36 U/L (10-68); BILIRUBIN - TOTAL 0.33 mg/dL (0.2-1.3); PROTEIN - SERUM 5.8 g/dL (6.4-8.2)
[2019-11-22 19:33] VITALS: BP 114/66
== END 2019-11-22 19:33 | disposition home or self-care (01) ==
LOC: D.ER 15:38
PROVIDERS: Emergency Medicine
DX: I82.622 Acute embolism and thrombosis of deep veins of left upper extremity (principal); I11.0 Hypertensive heart disease with heart failure; I50.9 Heart failure, unspecified; E78.5 Hyperlipidemia, unspecified; J44.9 Chronic obstructive pulmonary disease, unspecified